=== PATIENT | female | born 1975 | race Caucasian/White ===

== ENCOUNTER → 2020-02-13 | Day surgery (SDC) | payer BC ==
[2020-02-11 13:26] VITALS: BMI 24.9
--- NOTE | 2020-02-12 19:29 | P.GSHP ---
History of Present Illness H&P Date: 02/13/20 CHIEF COMPLAINT: Colitis HISTORY OF PRESENT ILLNESS: The patient is a 44-year-old female who presents with colitis. Lower endoscopy was offered for further evaluation and management. PAST MEDICAL HISTORY: Please see list. PAST SURGICAL HISTORY: Please see list. MEDICATIONS: Please see list. ALLERGIES: Please see list. SOCIAL HISTORY: No illicit drug use FAMILY HISTORY: No reports of Crohn disease or ulcerative colitis. REVIEW OF ORGAN SYSTEMS: CONSTITUTIONAL: No reports of fevers or chills. PHYSICAL EXAM: VITAL SIGNS: Stable GENERAL: Well-developed pleasant in no acute distress. HEENT: No scleral icterus. Extraocular movements grossly intact. Moist buccal mucosa. NECK: Supple without lymphadenopathy. CHEST: Unlabored respirations. Equal bilateral excursions. CARDIOVASCULAR: Regular rate and rhythm. Distal 2+ pulses. ABDOMEN: Soft, nontender, nondistended. MUSCULOSKELETAL: No clubbing, cyanosis, or edema. ASSESSMENT: 1. Colitis. PLAN: 1. Recommend proceeding with a lower endoscopy Past Medical History Past Medical History: GERD/Reflux, Thyroid Disorder Additional Past Medical History / Comment(s): migraines, RLS, +BLOOD IN STOOL History of Any Multi-Drug Resistant Organisms: MRSA Date of last positivie culture/infection: 2011 MDRO Source:: left breast Past Surgical History: Bariatric Surgery, Cholecystectomy, Hysterectomy Past Anesthesia/Blood Transfusion Reactions: Previous Problems w/ Anesthesia Additional Past Anesthesia/Blood Transfusion Reaction / Comment(s): GET SEVERE MIGRAINE WITH ANESTHESIA Smoking Status: Current every day smoker - Past Family History Mother Family Medical History: Cancer Additional Family Medical History / Comment(s): COLON Sister(s) Family Medical History: Deep Vein Thrombosis (DVT) Medications and Allergies Home Medications Medication Instructions Recorded Confirmed Type Pantoprazole Sodium [Protonix] 40 mg PO DAILY 08/01/17 02/11/20 History Promethazine [Phenergan] 25 mg PO Q6HR PRN 08/01/17 02/11/20 History Topiramate [Topamax] 100 mg PO BID 08/01/17 02/11/20 History levETIRAcetam [Keppra] 1,000 mg PO Q12HR 08/01/17 02/11/20 History Benzonatate [Tessalon Perles] 100 mg PO TID PRN 02/11/20 02/11/20 History Desvenlafaxine Succinate [Pristiq 50 mg PO DAILY 02/11/20 02/11/20 History ER] Desvenlafaxine [Pristiq ER] 100 mg PO DAILY 02/11/20 02/11/20 History Ezetimibe [Zetia] 10 mg PO HS 02/11/20 02/11/20 History Gabapentin [Neurontin] 400 mg PO HS 02/11/20 02/11/20 History Galcanezumab-Gnlm [Emgality 120 mg SQ Q30D 02/11/20 02/11/20 History Syringe] HYDROcodone/APAP 10-325MG [[place] 1 tab PO Q6HR PRN 02/11/20 02/11/20 History 10-325] Levothyroxine Sodium [Synthroid] 50 mcg PO DAILY 02/11/20 02/11/20 History Linaclotide [Linzess] 145 mcg PO DAILY 02/11/20 02/11/20 History Metaxalone [Skelaxin] 800 mg PO TID 02/11/20 02/11/20 History Naloxone HCl [Narcan] 4 mg NASAL DIRECTED PRN 02/11/20 02/11/20 History Ospemifene [Osphena] 60 mg PO DAILY 02/11/20 02/11/20 History PHENobarbital 60 mg PO HS 02/11/20 02/11/20 History Reyvow 100 mg PO DAILY PRN 02/11/20 History lamoTRIgine [LaMICtal] 200 mg PO DAILY 02/11/20 02/11/20 History rOPINIRole HCL [Requip Xl] 2 mg PO HS 02/11/20 02/11/20 History traMADol HCL [Ultram ER] 300 mg PO DAILY 02/11/20 02/11/20 History traZODone HCL 100 mg PO HS 02/11/20 02/11/20 History Allergies Allergy/AdvReac Type Severity Reaction Status Date / Time ketorolac [From Toradol] Allergy Nausea & Verified 02/11/20 12:45 Vomiting tramadol [From Ultram] Allergy Rash/Hives Verified 02/11/20 12:45 NSAIDS (Non-Steroidal AdvReac Nausea & Verified 02/11/20 12:45 Anti-Inflamma Vomiting
[~2020-02-13] MED LIST: IV FLUID CONTINUATION 1,000 ML IV ONE; LACTATED RINGERS 1,000 ML IV ONE; LACTATED RINGERS 1,000 ML IV SCH; LIDOCAINE 1% (10MG/ML) FOR IV START INTRADERMA ONE; LIDOCAINE 1% INJ 10MG/ML (20 ML MDV) ONE; MIDAZOLAM 2 MG/2 ML VIAL IV ONE; PROPOFOL 10 MG/ML 20 ML VIAL IV ONE
[2020-02-13 07:51] VITALS: TEMP 97.8
--- NOTE | 2020-02-13 10:13 | P.HPADDEND ---
H&P Addendum H&P Addendum Date: 02/13/20 Patient reports history of rectal bleeding and abdominal pain. We'll proceed with colonoscopy.
--- NOTE | 2020-02-13 10:16 | P.PCN ---
Date of Procedure: 02/13/20 Description of Procedure: PREOPERATIVE DIAGNOSIS: Rectal bleeding with abdominal pain POSTOPERATIVE DIAGNOSIS: Scattered diverticulosis, few Internal and external hemorrhoids, grade 3 Tubular adenoma sigmoid colon OPERATION: Colonoscopy to the ileocecal valve and appendiceal orifice. Colonoscopy with hot snare polypectomy SURGEON: Liyah Shabazz MD. ANESTHESIA: MAC. INDICATIONS: The patient is an 44-year-old female who presents rectal bleeding and abdominal pain. Benefits and risks were described and informed consent was obtained. DESCRIPTION OF PROCEDURE: The patient had undergone Suprep. He had been brought into the operating room and laid in the left lateral decubitus position. After adequate intravenous sedation, the rectum was examined with 2% lidocaine jelly. External hemorrhoids were encountered. The rectal tone was within normal limits. No lesions were palpated in the rectal vault. An Olympus colonoscope was advanced until the ileocecal valve and appendiceal orifice were clearly viewed. The prep was fair. Scattered diverticulosis was encountered. Sigmoid colon polyp was snare polypectomy. No evidence of focal colitis was found. Retroflexion of the scope demonstrated grade 3 internal hemorrhoids without active bleeding or inflammation. The colon was desufflated. The patient had tolerated the procedure well. Withdrawal time was over 6 minutes. FINDINGS: Aronchick preparation quality scale 3 (1-5) Internal hemorrhoids, grade 3 External hemorrhoids, grade 3 No arteriovenous malformations. Scattered diverticulosis Removal of 1 polyp: - Snare polypectomy 20 cm from the anal verge, 8 mm tubulovillous adenoma polyp, sigmoid colon No focal colitis. RECOMMENDATIONS: Repeat lower endoscopy 5 years, 2024 Plan - Discharge Summary Discharge Rx Participant: No New Discharge Prescriptions: Continue Topiramate [Topamax] 100 mg PO BID Promethazine [Phenergan] 25 mg PO Q6HR PRN PRN Reason: Nausea Pantoprazole Sodium [Protonix] 40 mg PO DAILY levETIRAcetam [Keppra] 1,000 mg PO Q12HR lamoTRIgine [LaMICtal] 200 mg PO DAILY traMADol HCL [Ultram ER] 300 mg PO DAILY Metaxalone [Skelaxin] 800 mg PO TID HYDROcodone/APAP 10-325MG [[place] 10-325] 1 tab PO Q6HR PRN PRN Reason: Pain Benzonatate [Tessalon Perles] 100 mg PO TID PRN PRN Reason: Cough Desvenlafaxine [Pristiq ER] 100 mg PO DAILY Desvenlafaxine Succinate [Pristiq ER] 50 mg PO DAILY Ezetimibe [Zetia] 10 mg PO HS Levothyroxine Sodium [Synthroid] 50 mcg PO DAILY traZODone HCL 100 mg PO HS rOPINIRole HCL [Requip Xl] 2 mg PO HS Reyvow 100 mg PO DAILY PRN PRN Reason: Migraine Headache PHENobarbital 60 mg PO HS Ospemifene [Osphena] 60 mg PO DAILY Naloxone HCl [Narcan] 4 mg NASAL DIRECTED PRN PRN Reason: OVERDOSE Linaclotide [Linzess] 145 mcg PO DAILY Galcanezumab-Gnlm [Emgality Syringe] 120 mg SQ Q30D Gabapentin [Neurontin] 400 mg PO HS Discharge Medication List Pantoprazole Sodium [Protonix] 40 mg PO DAILY 08/01/17 [History] Promethazine [Phenergan] 25 mg PO Q6HR PRN 08/01/17 [History] Topiramate [Topamax] 100 mg PO BID 08/01/17 [History] levETIRAcetam [Keppra] 1,000 mg PO Q12HR 08/01/17 [History] Benzonatate [Tessalon Perles] 100 mg PO TID PRN 02/11/20 [History] Desvenlafaxine Succinate [Pristiq ER] 50 mg PO DAILY 02/11/20 [History] Desvenlafaxine [Pristiq ER] 100 mg PO DAILY 02/11/20 [History] Ezetimibe [Zetia] 10 mg PO HS 02/11/20 [History] Gabapentin [Neurontin] 400 mg PO HS 02/11/20 [History] Galcanezumab-Gnlm [Emgality Syringe] 120 mg SQ Q30D 02/11/20 [History] HYDROcodone/APAP 10-325MG [[place] 10-325] 1 tab PO Q6HR PRN 02/11/20 [History] Levothyroxine Sodium [Synthroid] 50 mcg PO DAILY 02/11/20 [History] Linaclotide [Linzess] 145 mcg PO DAILY 02/11/20 [History] Metaxalone [Skelaxin] 800 mg PO TID 02/11/20 [History] Naloxone HCl [Narcan] 4 mg NASAL DIRECTED PRN 02/11/20 [History] Ospemifene [Osphena] 60 mg PO DAILY 02/11/20 [History] PHENobarbital 60 mg PO HS 02/11/20 [History] Reyvow 100 mg PO DAILY PRN 02/11/20 [History] lamoTRIgine [LaMICtal] 200 mg PO DAILY 02/11/20 [History] rOPINIRole HCL [Requip Xl] 2 mg PO HS 02/11/20 [History] traMADol HCL [Ultram ER] 300 mg PO DAILY 02/11/20 [History] traZODone HCL 100 mg PO HS 02/11/20 [History] Follow up Appointment(s)/Referral(s): Liyah Shabazz MD [STAFF PHYSICIAN] - 03/03/20 Patient Instructions/Handouts: Hemorrhoids (DC), Colorectal Polyps (GEN), Colonoscopy (DC) Activity/Diet/Wound Care/Special Instructions: Repeat colonoscopy, 5 years 01/23/2025 Discharge Disposition: HOME SELF-CARE
[2020-02-13 10:17] VITALS: RESP 16
[2020-02-13 10:45] VITALS: BP 132/82; PULSE 77
== END | disposition home or self-care (01) ==
LOC: ORWHC2ENDO 07:20
PROVIDERS: ATTEND Surgery Plastic and Reconstructive Surgery
DX: K63.5 Polyp of colon (principal); K57.30 Diverticulosis of large intestine without perforation or abscess without bleeding; K64.4 Residual hemorrhoidal skin tags; K64.2 Third degree hemorrhoids; K21.9 Gastro-esophageal reflux disease without esophagitis; E07.9 Disorder of thyroid, unspecified; G43.909 Migraine, unspecified, not intractable, without status migrainosus; G25.81 Restless legs syndrome; F17.200 Nicotine dependence, unspecified, uncomplicated; Z86.14 Personal history of Methicillin resistant Staphylococcus aureus infection; Z79.890 Hormone replacement therapy; Z79.899 Other long term (current) drug therapy; Z90.49 Acquired absence of other specified parts of digestive tract; Z98.84 Bariatric surgery status; Z90.710 Acquired absence of both cervix and uterus; Z88.6 Allergy status to analgesic agent; Z80.0 Family history of malignant neoplasm of digestive organs; Z82.49 Family history of ischemic heart disease and other diseases of the circulatory system
CPT/HCPCS: 88305; 87635; 45385; J2250; J2001; J2704

== ENCOUNTER → 2020-03-03 | Outpatient (CLI) | payer BC ==
[2020-03-03 15:24] LABS: HCT 38.6 % (34.0-46.0); HGB 12.5 gm/dL (11.4-16.0); MCH 33.3 pg (25.0-35.0); MCHC 32.3 g/dL (31.0-37.0); MCV 102.9 fL (80.0-100.0); Macrocytosis Slight; Mean Platelet Volume 7.2; Platelet Count 378 k/uL (150-450); RBC 3.75 m/uL (3.80-5.40); RDW 13.2 % (11.5-15.5); WBC 6.3 k/uL (3.8-10.6)
[2020-03-03 15:34] LABS: INR 0.9 (<1.2); Partial Thromboplastin Time 24.7 sec (22.0-30.0); Prothrombin Time 9.7 sec (9.0-12.0)
[2020-03-03 23:44] LABS: Folate, Serum 3.1 ng/mL
[2020-03-04 00:03] LABS: Ferritin 7.1 ng/mL (10.0-291.0)
[2020-03-04 00:04] LABS: % Iron Saturation 20.57 (12.00-45.00); African American GFR (CKD) 123.9 (60.0-200.0); Albumin 4.1 g/dL (3.80-4.90); Albumin/Globulin Ratio 1.86 (1.60-3.17); Anion Gap 5.7 mmol/L (4.00-12.00); BUN/Creat Ratio 11.43 Ratio (12.00-20.00); Calcium 8.9 mg/dL (8.7-10.3); Carbon Dioxide 25.3 mmol/L (21.6-31.8); Chol/HDL Ratio 3.46; Globulin 2.2 g/dL (1.6-3.3); LDL Cholesterol,Calculated 111.8 mg/dL (0.0-131.0); Non-African American GFR(CKD) 106.9 (60.0-200.0); Phosphorus 3.8 mg/dL (2.4-5.1); Potassium 3.3 mmol/L (3.5-5.5); Total Bilirubin 0.2 mg/dL (0.3-1.2); Total Protein 6.3 g/dL (6.2-8.2); VLDL Calculation 26.2 mg/dL (5.00-40.00)
[2020-03-04 03:49] LABS: Hemoglobin A1C 5.5 % (4.0-6.0)
[2020-03-04 14:06] LABS: Zinc, Serum 72 ug/dL (60-130)
[2020-03-05 06:38] LABS: Vitamin A 43 ug/dL (38-106)
[2020-03-05 13:09] LABS: Vit B1(Thiamine) 61 ug/L (38-122)
[2020-03-06 01:37] LABS: Selenium 85 mcg/L (63-160)
== END | disposition home or self-care (01) ==
LOC: LABWHC1 14:46
PROVIDERS: ATTEND Surgery Plastic and Reconstructive Surgery
DX: E21.1 Secondary hyperparathyroidism, not elsewhere classified (principal); E89.1 Postprocedural hypoinsulinemia; D50.8 Other iron deficiency anemias; K90.89 Other intestinal malabsorption; E55.9 Vitamin D deficiency, unspecified; K74.1 Hepatic sclerosis; N19 Unspecified kidney failure; K50.90 Crohn's disease, unspecified, without complications
CPT/HCPCS: 36415; 80053; 80061; 82306; 82525; 82607; 82728; 82746; 83036; 83540; 83550; 83735; 83970; 84100; 84134; 84255; 84425; 84443; 84590; 84630; 85027; 85610; 85730

== ENCOUNTER 2020-09-16 09:18 | Day surgery (SDC) | payer BC ==
[2020-09-15 13:39] VITALS: BMI 23.6
[~2020-09-16 09:18] MED LIST changes: -IV FLUID CONTINUATION 1,000 ML IV ONE; -LACTATED RINGERS 1,000 ML IV ONE; -LIDOCAINE 1% (10MG/ML) FOR IV START INTRADERMA ONE; -LIDOCAINE 1% INJ 10MG/ML (20 ML MDV) ONE; -MIDAZOLAM 2 MG/2 ML VIAL IV ONE; -PROPOFOL 10 MG/ML 20 ML VIAL IV ONE
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
[2020-09-16] MEDS ORDERED: LIDOCAINE 1% (10MG/ML) FOR IV START INTRADERMA ONE (10:40)
[2020-09-16 10:45] VITALS: TEMP 98.4
[2020-09-16] MEDS ORDERED: fentaNYL (PF) 50 MCG/ML 2 ML AMP IVP ONE (10:56)
[2020-09-16] MEDS ORDERED: MIDAZOLAM 2 MG/2 ML VIAL IVP ONE (10:56)
[2020-09-16] MEDS ORDERED: PROPOFOL 10 MG/ML 20 ML VIAL IV ONE (11:25)
[2020-09-16] MEDS ORDERED: LIDOCAINE 1% INJ 10MG/ML (20 ML MDV) ONE (11:25)
[2020-09-16 11:53] VITALS: RESP 16
[2020-09-16 11:59] VITALS: BP 106/63; PULSE 82
--- NOTE | 2020-09-21 21:34 | P.PCN ---
Date of Procedure: 09/16/20 Description of Procedure: PREOPERATIVE DIAGNOSIS: Dysphagia. Nausea with vomiting. POSTOPERATIVE DIAGNOSIS: Dysphagia. Nausea with vomiting. Gastrojejunal stricture without chronic ulcer without perforation OPERATION: Esophagogastrojejunoscopy with balloon dilatation from 12 to 20 mm. SURGEON: Liyah Shabazz MD ANESTHESIA: MAC. INDICATIONS: The patient is a 44-year-old female who presents with a history of dysphagia including new-onset nausea and vomiting. Benefits and risks of the procedure w ere described. Informed consent was obtained. DESCRIPTION: The patient was brought into the endoscopy suite and laid in the left lateral decubitus position. After a timeout was confirmed, the procedure was initiated. An Olympus gastroscope was passed along the posterior oropharynx down to the distal esophagus where the squamocolumnar junction was unremarkable. The gastric pouch was entered. A gastrojejunal stricture of 12 mm was found as the adult gastroscope was 9.5 mm in size. A TEXbase balloon dilator was placed through the scope. Final insufflation up to 20 mm was performed with a total of 2 minutes. The scope was advanced up to 60 cm from the incisors into the Yuri limb. The mucosa of the gastrojejunal anastomosis was intact. No chronic gastrojejunal marginal ulcer was encountered. No full-thickness injury was encountered. The GI tract was desufflated. The patient tolerated the procedure well. FINDINGS: Stricture of approximately 12 mm encountered. No chronic gastrojejunal ulceration encountered. Successful balloon dilatation to 20 mm. RECOMMENDATIONS: Upper endoscopy as needed. Avoid NSAIDs for risk of recurrence of stricture Plan - Discharge Summary New Discharge Prescriptions: Continue HYDROcodone/APAP 10-325MG [[place] 10-325] 1 tab PO QID ALPRAZolam [Xanax] 1 mg PO TID levETIRAcetam [Keppra] 1,000 mg PO BID Pantoprazole Sodium [Protonix] 40 mg PO BID Levothyroxine Sodium [Synthroid] 75 mg PO DAILY Desvenlafaxine Succinate [Pristiq] 100 mg PO DAILY lamoTRIgine [LaMICtal] 200 mg PO DAILY Ezetimibe [Zetia] 10 mg PO HS rOPINIRole HCL [Requip Xl] 2 mg PO HS traZODone HCL 100 mg PO HS Hyoscyamine Sulfate [Levsin] 0.125 mg PO DIRECTED Phenazopyridine [Pyridium] 200 mg PO TID Promethazine [Phenergan] 25 mg PO ONCE PRN PRN Reason: UPSET STOMACH Ciprofloxacin HCl [Cipro] 500 mg PO DIRECTED Baclofen 10 mg PO DAILY Topamax (Unknown Dose) 1 tab PO DAILY Potassium (Unknown Dose) 1 tab PO DAILY No Action Topiramate [Topamax] 100 mg PO BID Promethazine [Phenergan] 25 mg PO Q6HR PRN PRN Reason: Nausea Pantoprazole Sodium [Protonix] 40 mg PO DAILY levETIRAcetam [Keppra] 1,000 mg PO Q12HR lamoTRIgine [LaMICtal] 200 mg PO DAILY traMADol HCL [Ultram ER] 300 mg PO DAILY Metaxalone [Skelaxin] 800 mg PO TID HYDROcodone/APAP 10-325MG [[place] 10-325] 1 tab PO Q6HR PRN PRN Reason: Pain Benzonatate [Tessalon Perles] 100 mg PO TID PRN PRN Reason: Cough Desvenlafaxine [Pristiq ER] 100 mg PO DAILY Desvenlafaxine Succinate [Pristiq ER] 50 mg PO DAILY Ezetimibe [Zetia] 10 mg PO HS Levothyroxine Sodium [Synthroid] 50 mcg PO DAILY traZODone HCL 100 mg PO HS rOPINIRole HCL [Requip Xl] 2 mg PO HS [place] 100 mg PO DAILY PRN PRN Reason: Migraine Headache PHENobarbitaL [PHENobarbital] 60 mg PO HS Ospemifene [Osphena] 60 mg PO DAILY Naloxone HCl [Narcan] 4 mg NASAL DIRECTED PRN PRN Reason: OVERDOSE Linaclotide [Linzess] 145 mcg PO DAILY Galcanezumab-Gnlm [Emgality Syringe] 120 mg SQ Q30D Gabapentin [Neurontin] 400 mg PO HS Discharge Medication List Pantoprazole Sodium [Protonix] 40 mg PO DAILY 08/01/17 [History] Promethazine [Phenergan] 25 mg PO Q6HR PRN 08/01/17 [History] Topiramate [Topamax] 100 mg PO BID 08/01/17 [History] levETIRAcetam [Keppra] 1,000 mg PO Q12HR 08/01/17 [History] Benzonatate [Tessalon Perles] 100 mg PO TID PRN 02/11/20 [History] Desvenlafaxine Succinate [Pristiq ER] 50 mg PO DAILY 02/11/20 [History] Desvenlafaxine [Pristiq ER] 100 mg PO DAILY 02/11/20 [History] Ezetimibe [Zetia] 10 mg PO HS 02/11/20 [History] Gabapentin [Neurontin] 400 mg PO HS 02/11/20 [History] Galcanezumab-Gnlm [Emgality Syringe] 120 mg SQ Q30D 02/11/20 [History] HYDROcodone/APAP 10-325MG [[place] 10-325] 1 tab PO Q6HR PRN 02/11/20 [History] Levothyroxine Sodium [Synthroid] 50 mcg PO DAILY 02/11/20 [History] Linaclotide [Linzess] 145 mcg PO DAILY 02/11/20 [History] Metaxalone [Skelaxin] 800 mg PO TID 02/11/20 [History] Naloxone HCl [Narcan] 4 mg NASAL DIRECTED PRN 02/11/20 [History] Ospemifene [Osphena] 60 mg PO DAILY 02/11/20 [History] PHENobarbitaL [PHENobarbital] 60 mg PO HS 02/11/20 [History] Reyvow 100 mg PO DAILY PRN 02/11/20 [History] lamoTRIgine [LaMICtal] 200 mg PO DAILY 02/11/20 [History] rOPINIRole HCL [Requip Xl] 2 mg PO HS 02/11/20 [History] traMADol HCL [Ultram ER] 300 mg PO DAILY 02/11/20 [History] traZODone HCL 100 mg PO HS 02/11/20 [History] ALPRAZolam [Xanax] 1 mg PO TID 06/04/20 [History] Desvenlafaxine Succinate [Pristiq] 100 mg PO DAILY 06/04/20 [History] Ezetimibe [Zetia] 10 mg PO HS 06/04/20 [History] HYDROcodone/APAP 10-325MG [[place] 10-325] 1 tab PO QID 06/04/20 [History] Hyoscyamine Sulfate [Levsin] 0.125 mg PO DIRECTED 06/04/20 [History] Levothyroxine Sodium [Synthroid] 75 mg PO DAILY 06/04/20 [History] Pantoprazole Sodium [Protonix] 40 mg PO BID 06/04/20 [History] lamoTRIgine [LaMICtal] 200 mg PO DAILY 06/04/20 [History] levETIRAcetam [Keppra] 1,000 mg PO BID 06/04/20 [History] rOPINIRole HCL [Requip Xl] 2 mg PO HS 06/04/20 [History] traZODone HCL 100 mg PO HS 06/04/20 [History] Baclofen 10 mg PO DAILY 09/15/20 [History] Ciprofloxacin HCl [Cipro] 500 mg PO DIRECTED 09/15/20 [History] Phenazopyridine [Pyridium] 200 mg PO TID 09/15/20 [History] Potassium (Unknown Dose) 1 tab PO DAILY 09/15/20 [History] Promethazine [Phenergan] 25 mg PO ONCE PRN 09/15/20 [History] Topamax (Unknown Dose) 1 tab PO DAILY 09/15/20 [History] Follow up Appointment(s)/Referral(s): Liyah Shabazz MD [STAFF PHYSICIAN] - 09/30/20 Patient Instructions/Handouts: *[facility] - (Anesthesia) Endoscopy Discharge Instructions, Esophageal Dilation (DC) Activity/Diet/Wound Care/Special Instructions: Liquid diet today. Soft diet tomorrow. Discharge Disposition: HOME SELF-CARE
== END 2020-09-16 12:27 | disposition home or self-care (01) ==
LOC: ORWHC2ENDO 09:18 → MERGE 09:18 → ORWHC2ENDO 12:27
PROVIDERS: ATTEND Surgery Plastic and Reconstructive Surgery
DX: K21.9 Gastro-esophageal reflux disease without esophagitis (principal); K95.89 Other complications of other bariatric procedure; I10 Essential (primary) hypertension; M19.90 Unspecified osteoarthritis, unspecified site; G40.909 Epilepsy, unspecified, not intractable, without status epilepticus; E07.9 Disorder of thyroid, unspecified; G43.909 Migraine, unspecified, not intractable, without status migrainosus; F41.9 Anxiety disorder, unspecified; F31.9 Bipolar disorder, unspecified; F17.210 Nicotine dependence, cigarettes, uncomplicated; Z87.442 Personal history of urinary calculi; Z80.0 Family history of malignant neoplasm of digestive organs; E78.5 Hyperlipidemia, unspecified; Z98.84 Bariatric surgery status; Z98.890 Other specified postprocedural states; Z90.710 Acquired absence of both cervix and uterus; Z90.49 Acquired absence of other specified parts of digestive tract; Z79.890 Hormone replacement therapy; Z79.891 Long term (current) use of opiate analgesic; Z79.899 Other long term (current) drug therapy; Z88.6 Allergy status to analgesic agent; Z88.5 Allergy status to narcotic agent
CPT/HCPCS: 43245; J2250; J2001; J3010; J2704; C1726

== ENCOUNTER 2020-10-28 08:06 | Day surgery (SDC) | payer BC ==
[2020-10-26 14:29] VITALS: BMI 24.1
--- NOTE | 2020-10-28 05:43 | P.GSHP ---
History of Present Illness H&P Date: 10/28/20 CHIEF COMPLAINT: Dysphagia HISTORY OF PRESENT ILLNESS: The patient is a 45-year-old female who presents with new upper esophageal dysphagia. She has pre-existing history of gastroesophageal reflux disease. She reports food gets stuck in her throat ongoing for 1-2 months. Upper endoscopy was offered for further evaluation and management. PAST MEDICAL HISTORY: Please see list. PAST SURGICAL HISTORY: Please see list. MEDICATIONS: Please see list. ALLERGIES: Please see list. SOCIAL HISTORY: No illicit drug use FAMILY HISTORY: No reports of Crohn disease or ulcerative colitis. REVIEW OF ORGAN SYSTEMS: CONSTITUTIONAL: No reports of fevers or chills. GI: Denies any blood in stools or constipation. PHYSICAL EXAM: VITAL SIGNS: Stable GENERAL: Well-developed and pleasant in no acute distress. HEENT: No scleral icterus. Extraocular movements grossly intact. Moist buccal mucosa. NECK: Supple without lymphadenopathy. CHEST: Unlabored respirations. Equal bilateral excursions. CARDIOVASCULAR: Regular rate and rhythm. Distal 2+ pulses. ABDOMEN: Soft, nondistended. MUSCULOSKELETAL: No clubbing, cyanosis, or edema. ASSESSMENT: 1. Dysphagia 2. Gastroesophageal reflux disease. PLAN: 1. Recommend proceeding with an upper endoscopy with rigid dilation Past Medical History Past Medical History: GERD/Reflux, Hypertension, Osteoarthritis (OA), Seizure Disorder, Thyroid Disorder Additional Past Medical History / Comment(s): LAST SEIZURE 08/14, DDD, MIGRAINES, KIDNEY STONES, STATES FOOD IS GETTING STUCK, abdominal discomfort History of Any Multi-Drug Resistant Organisms: MRSA Date of last positivie culture/infection: 2011 MDRO Source:: left breast Past Surgical History: Bariatric Surgery, Cholecystectomy, Hysterectomy Additional Past Surgical History / Comment(s): Gastric bypass in [place] 2012 ,panniculectomy breast reduction 2014. CYSTOSCOPY WITH KIDNEY STONE REMOVAL 09/04/2020 ([place]) Past Anesthesia/Blood Transfusion Reactions: Previous Problems w/ Anesthesia, Motion Sickness Additional Past Anesthesia/Blood Transfusion Reaction / Comment(s): MIGRAINE AFTER ANESTHESIA Smoking Status: Current every day smoker - Past Family History Mother Family Medical History: Cancer Sister(s) Family Medical History: Deep Vein Thrombosis (DVT) Medications and Allergies Home Medications Medication Instructions Recorded Confirmed Type Topiramate [Topamax] 100 mg PO BID 08/01/17 10/26/20 History Linaclotide [Linzess] 145 mcg PO DAILY 02/11/20 10/26/20 History Naloxone HCl [Narcan] 4 mg NASAL DIRECTED PRN 02/11/20 10/26/20 History Ospemifene [Osphena] 60 mg PO DAILY 02/11/20 10/26/20 History PHENobarbitaL [PHENobarbital] 60 mg PO HS 02/11/20 10/26/20 History Reyvow 100 mg PO DAILY PRN 02/11/20 10/26/20 History ALPRAZolam [Xanax] 1 mg PO TID 06/04/20 10/26/20 History Ezetimibe [Zetia] 10 mg PO HS 06/04/20 10/26/20 History HYDROcodone/APAP 10-325MG [[place] 1 tab PO QID 06/04/20 10/26/20 History 10-325] Hyoscyamine Sulfate [Levsin] 0.125 mg PO DIRECTED 06/04/20 10/26/20 History Levothyroxine Sodium [Synthroid] 75 mg PO DAILY 06/04/20 10/26/20 History Pantoprazole Sodium [Protonix] 40 mg PO BID 06/04/20 10/26/20 History lamoTRIgine [LaMICtal] 200 mg PO DAILY 06/04/20 10/26/20 History levETIRAcetam [Keppra] 1,000 mg PO BID 06/04/20 10/26/20 History rOPINIRole HCL [Requip Xl] 2 mg PO HS 06/04/20 10/26/20 History traZODone HCL 100 mg PO HS 06/04/20 10/26/20 History Baclofen 10 mg PO DAILY 09/15/20 10/26/20 History Promethazine [Phenergan] 25 mg PO ONCE PRN 09/15/20 10/26/20 History Ascorbic Acid [Vitamin C] 500 mg PO DAILY 10/26/20 10/26/20 History Cholecalciferol [Vitamin D3 (25 50 mcg PO DAILY 10/26/20 10/26/20 History Mcg = 1000 Iu)] Desvenlafaxine [Pristiq ER] 100 mg PO DAILY 10/26/20 10/26/20 History Magnesium 500 mg PO DAILY 10/26/20 10/26/20 History Potassium Chloride [Klor-Con 20 20 meq PO DAILY 10/26/20 10/26/20 History Packets] Tamsulosin [Flomax] 0.4 mg PO HS 10/26/20 10/26/20 History Zinc 50 mg PO DAILY 10/26/20 10/26/20 History Allergies Allergy/AdvReac Type Severity Reaction Status Date / Time ketorolac [From Toradol] Allergy Nausea & Verified 10/26/20 14:09 Vomiting tramadol [From Ultram] Allergy Rash/Hives Verified 10/26/20 14:09 NSAIDS (Non-Steroidal AdvReac Nausea & Verified 10/26/20 14:09 Anti-Inflamma Vomiting
[~2020-10-28 08:06] MED LIST changes: -LACTATED RINGERS 1,000 ML IV SCH; +LIDOCAINE 1% (10MG/ML) FOR IV START INTRADERMA PRN
[2020-10-28 08:46] VITALS: TEMP 97.9
[2020-10-28] MEDS: LACTATED RINGERS 1,000 ML IV SCH ×2 (09:02→09:16)
[2020-10-28] MEDS ORDERED: LIDOCAINE 1% (10MG/ML) FOR IV START INTRADERMA ONE (09:02)
[2020-10-28] MEDS ORDERED: MIDAZOLAM 2 MG/2 ML VIAL IVP ONE ×2 (09:08→09:11)
[2020-10-28] MEDS ORDERED: MIDAZOLAM 2 MG/2 ML VIAL ONE (09:17)
[2020-10-28] MEDS ORDERED: fentaNYL (PF) 50 MCG/ML 2 ML AMP ONE (09:17)
[2020-10-28] MEDS ORDERED: PROPOFOL 10 MG/ML 20 ML VIAL IV ONE (09:17)
[2020-10-28] MEDS ORDERED: LIDOCAINE 1% INJ 10MG/ML (20 ML MDV) ONE (09:17)
[2020-10-28 09:39] VITALS: RESP 16
--- NOTE | 2020-10-28 09:47 | P.PCN ---
Date of Procedure: 10/28/20 Description of Procedure: PREOPERATIVE DIAGNOSIS: Dysphagia. Gastroesophageal reflux disease Esophageal dysmotility, upper esophagus POSTOPERATIVE DIAGNOSIS: Dysphagia. Gastroesophageal reflux disease Esophageal dysmotility, upper esophagus Esophageal stricture Diaphragmatic hiatal hernia OPERATION: Esophagogastroduodenoscopy with rigid dilator over the guidewire 51 Fr with dilation of esophagus. SURGEON: Liyah Shabazz MD ANESTHESIA: MAC. INDICATIONS: The patient is a 45-year-old male who presents with a history of dysphagia. Benefits and risks of the procedure were described. Informed consent was obtained. DESCRIPTION: The patient was brought into the endoscopy suite and laid in the left lateral decubitus position. After a timeout was confirmed, the procedure was initiated. An Olympus gastroscope was passed into the posterior oropharynx down to the distal esophagus hiatal hernia was identified. The scope was entered into the gastric pouch without gastrojejunal ulceration. Stenosis along the upper esophageal sphincter was identified. To address her upper esophageal stricture, rigid dilator over guidewire was selected. Next using an Welsh rigid dilator, a guidewire was placed through the gastroscope. Next the scope was withdrawn. A 51-Bhut[place] rigid Welsh dilator was passed carefully along the posterior oropharynx to 50 cm and left in place for 2-3 minutes stretch. The dilator was withdrawn including the guidewire. The scope was reentered along the posterior oropharynx with no findings of full- thickness tear of the upper esophageal sphincter. No full-thickness injury was encountered. The GI tract was desufflated. The patient tolerated the procedure well. FINDINGS: No gastrojejunal anastomotic ulcer Upper esophageal stricture without ulceration dilated Welsh rigid dilator 51-Bhutanese completed. Hiatal hernia, 2-cm RECOMMENDATIONS: Upper endoscopy as needed Plan - Discharge Summary Discharge Rx Participant: No New Discharge Prescriptions: Continue Topiramate [Topamax] 100 mg PO BID [place] 100 mg PO DAILY PRN PRN Reason: Migraine Headache PHENobarbitaL [PHENobarbital] 60 mg PO HS Ospemifene [Osphena] 60 mg PO DAILY Naloxone HCl [Narcan] 4 mg NASAL DIRECTED PRN PRN Reason: OVERDOSE Linaclotide [Linzess] 145 mcg PO DAILY HYDROcodone/APAP 10-325MG [[place] 10-325] 1 tab PO QID ALPRAZolam [Xanax] 1 mg PO TID levETIRAcetam [Keppra] 1,000 mg PO BID Pantoprazole Sodium [Protonix] 40 mg PO BID Levothyroxine Sodium [Synthroid] 75 mg PO DAILY lamoTRIgine [LaMICtal] 200 mg PO DAILY Ezetimibe [Zetia] 10 mg PO HS rOPINIRole HCL [Requip Xl] 2 mg PO HS traZODone HCL 100 mg PO HS Hyoscyamine Sulfate [Levsin] 0.125 mg PO DIRECTED Promethazine [Phenergan] 25 mg PO ONCE PRN PRN Reason: UPSET STOMACH Baclofen 10 mg PO DAILY Tamsulosin [Flomax] 0.4 mg PO HS Magnesium 500 mg PO DAILY Zinc 50 mg PO DAILY Cholecalciferol [Vitamin D3 (25 Mcg = 1000 Iu)] 50 mcg PO DAILY Ascorbic Acid [Vitamin C] 500 mg PO DAILY Desvenlafaxine [Pristiq ER] 100 mg PO DAILY Potassium Chloride [Klor-Con 20 Packets] 20 meq PO DAILY Discharge Medication List Topiramate [Topamax] 100 mg PO BID 08/01/17 [History] Linaclotide [Linzess] 145 mcg PO DAILY 02/11/20 [History] Naloxone HCl [Narcan] 4 mg NASAL DIRECTED PRN 02/11/20 [History] Ospemifene [Osphena] 60 mg PO DAILY 02/11/20 [History] PHENobarbitaL [PHENobarbital] 60 mg PO HS 02/11/20 [History] [place] 100 mg PO DAILY PRN 02/11/20 [History] ALPRAZolam [Xanax] 1 mg PO TID 06/04/20 [History] Ezetimibe [Zetia] 10 mg PO HS 06/04/20 [History] HYDROcodone/APAP 10-325MG [[place] 10-325] 1 tab PO QID 06/04/20 [History] Hyoscyamine Sulfate [Levsin] 0.125 mg PO DIRECTED 06/04/20 [History] Levothyroxine Sodium [Synthroid] 75 mg PO DAILY 06/04/20 [History] Pantoprazole Sodium [Protonix] 40 mg PO BID 06/04/20 [History] lamoTRIgine [LaMICtal] 200 mg PO DAILY 06/04/20 [History] levETIRAcetam [Keppra] 1,000 mg PO BID 06/04/20 [History] rOPINIRole HCL [Requip Xl] 2 mg PO HS 06/04/20 [History] traZODone HCL 100 mg PO HS 06/04/20 [History] Baclofen 10 mg PO DAILY 09/15/20 [History] Promethazine [Phenergan] 25 mg PO ONCE PRN 09/15/20 [History] Ascorbic Acid [Vitamin C] 500 mg PO DAILY 10/26/20 [History] Cholecalciferol [Vitamin D3 (25 Mcg = 1000 Iu)] 50 mcg PO DAILY 10/26/20 [History] Desvenlafaxine [Pristiq ER] 100 mg PO DAILY 10/26/20 [History] Magnesium 500 mg PO DAILY 10/26/20 [History] Potassium Chloride [Klor-Con 20 Packets] 20 meq PO DAILY 10/26/20 [History] Tamsulosin [Flomax] 0.4 mg PO HS 10/26/20 [History] Zinc 50 mg PO DAILY 10/26/20 [History] Follow up Appointment(s)/Referral(s): Liyah Shabazz MD [STAFF PHYSICIAN] - 11/10/20 Patient Instructions/Handouts: *[facility] - (Anesthesia) Endoscopy Discharge Instructions, Esophageal Stricture (DC), Esophageal Dilation (DC) Activity/Diet/Wound Care/Special Instructions: Diet as tolerated Discharge Disposition: HOME SELF-CARE
[2020-10-28 10:02] VITALS: BP 109/71; PULSE 58
[2020-10-28] MEDS ORDERED: HYDROcodone/APAP 10-325MG 1 EACH TAB ONE (10:11)
[2020-10-28] MEDS ORDERED: HYDROcodone/APAP 10-325MG 1 EACH TAB PO ONE (10:12)
== END 2020-10-28 10:42 | disposition home or self-care (01) ==
LOC: ORWHC2ENDO 08:06
PROVIDERS: ATTEND Surgery Plastic and Reconstructive Surgery
DX: K22.2 Esophageal obstruction (principal); K22.4 Dyskinesia of esophagus; K44.9 Diaphragmatic hernia without obstruction or gangrene; K21.9 Gastro-esophageal reflux disease without esophagitis; I10 Essential (primary) hypertension; F17.210 Nicotine dependence, cigarettes, uncomplicated; M19.90 Unspecified osteoarthritis, unspecified site; E07.9 Disorder of thyroid, unspecified; G43.909 Migraine, unspecified, not intractable, without status migrainosus; G40.909 Epilepsy, unspecified, not intractable, without status epilepticus; Z79.890 Hormone replacement therapy; Z79.891 Long term (current) use of opiate analgesic; Z79.899 Other long term (current) drug therapy; Z88.6 Allergy status to analgesic agent; Z88.5 Allergy status to narcotic agent; Z87.442 Personal history of urinary calculi; Z86.14 Personal history of Methicillin resistant Staphylococcus aureus infection; Z98.84 Bariatric surgery status; Z90.49 Acquired absence of other specified parts of digestive tract; Z90.710 Acquired absence of both cervix and uterus; Z82.49 Family history of ischemic heart disease and other diseases of the circulatory system; Z80.9 Family history of malignant neoplasm, unspecified
CPT/HCPCS: 43248; J2250; J2001; J3010; J2704; 43249

== ENCOUNTER 2020-12-03 08:10 | Day surgery (SDC) | payer BC ==
[2020-11-30 12:19] VITALS: BMI 24.0
--- NOTE | 2020-12-03 04:47 | P.GSHP ---
History of Present Illness H&P Date: 12/03/20 CHIEF COMPLAINT: Esophageal stricture HISTORY OF PRESENT ILLNESS: The patient is a 45-year-old female who presents reports dysphagia. Upper endoscopy was offered for further evaluation and management. PAST MEDICAL HISTORY: Please see list. PAST SURGICAL HISTORY: Please see list. MEDICATIONS: Please see list. ALLERGIES: Please see list. SOCIAL HISTORY: No illicit drug use FAMILY HISTORY: No reports of Crohn disease or ulcerative colitis. REVIEW OF ORGAN SYSTEMS: CONSTITUTIONAL: No reports of fevers or chills. PHYSICAL EXAM: VITAL SIGNS: Stable GENERAL: Well-developed and pleasant in no acute distress. HEENT: No scleral icterus. Extraocular movements grossly intact. Moist buccal mucosa. NECK: Supple without lymphadenopathy. CHEST: Unlabored respirations. Equal bilateral excursions. CARDIOVASCULAR: Regular rate and rhythm. Distal 2+ pulses. ABDOMEN: Soft, nondistended. MUSCULOSKELETAL: No clubbing, cyanosis, or edema. ASSESSMENT: 1. Esophageal stricture PLAN: 1. Recommend proceeding with an upper endoscopy with rigid dilators. Past Medical History Past Medical History: GERD/Reflux, Hypertension, Osteoarthritis (OA), Seizure Disorder, Thyroid Disorder Additional Past Medical History / Comment(s): LAST SEIZURE 08/14, DDD, MIGRAINES, KIDNEY STONES, STATES FOOD IS GETTING STUCK, abdominal discomfort History of Any Multi-Drug Resistant Organisms: MRSA Date of last positivie culture/infection: 2011 MDRO Source:: left breast Past Surgical History: Appendectomy, Bariatric Surgery, Breast Surgery, Cholecystectomy, Hysterectomy Additional Past Surgical History / Comment(s): Gastric bypass in [place] 2012 ,panniculectomy, breast reduction 2014. CYSTOSCOPY WITH KIDNEY STONE REMOVAL 09/04/2020 ([facility]), EGD Past Anesthesia/Blood Transfusion Reactions: Previous Problems w/ Anesthesia, Motion Sickness Additional Past Anesthesia/Blood Transfusion Reaction / Comment(s): MIGRAINE AFTER ANESTHESIA Smoking Status: Current every day smoker - Past Family History Mother Family Medical History: Cancer Sister(s) Family Medical History: Deep Vein Thrombosis (DVT) Medications and Allergies Home Medications Medication Instructions Recorded Confirmed Type Topiramate [Topamax] 100 mg PO BID 08/01/17 11/30/20 History Linaclotide [Linzess] 145 mcg PO DAILY 02/11/20 11/30/20 History Naloxone HCl [Narcan] 4 mg NASAL DIRECTED PRN 02/11/20 11/30/20 History Ospemifene [Osphena] 60 mg PO DAILY 02/11/20 11/30/20 History ALPRAZolam [Xanax] 1 mg PO TID 06/04/20 11/30/20 History Ezetimibe [Zetia] 10 mg PO HS 06/04/20 11/30/20 History HYDROcodone/APAP 10-325MG [[place] 1 tab PO QID 06/04/20 11/30/20 History 10-325] Hyoscyamine Sulfate [Levsin] 0.125 mg PO DIRECTED 06/04/20 11/30/20 History Levothyroxine Sodium [Synthroid] 75 mg PO DAILY 06/04/20 11/30/20 History Pantoprazole Sodium [Protonix] 40 mg PO BID 06/04/20 11/30/20 History lamoTRIgine [LaMICtal] 200 mg PO DAILY 06/04/20 11/30/20 History levETIRAcetam [Keppra] 500 mg PO BID 06/04/20 11/30/20 History rOPINIRole HCL [Requip Xl] 2 mg PO HS 06/04/20 11/30/20 History traZODone HCL 100 mg PO HS 06/04/20 11/30/20 History Promethazine [Phenergan] 25 mg PO ONCE PRN 09/15/20 11/30/20 History Desvenlafaxine [Pristiq ER] 100 mg PO DAILY 10/26/20 11/30/20 History Tamsulosin [Flomax] 0.4 mg PO HS 10/26/20 11/30/20 History Allergies Allergy/AdvReac Type Severity Reaction Status Date / Time ketorolac [From Toradol] Allergy Nausea & Verified 11/30/20 12:04 Vomiting tramadol [From Ultram] Allergy Rash/Hives Verified 11/30/20 12:04 NSAIDS (Non-Steroidal AdvReac Nausea & Verified 11/30/20 12:04 Anti-Inflamma Vomiting
[~2020-12-03 08:10] MED LIST changes: +LACTATED RINGERS 1,000 ML IV SCH
[2020-12-03 09:28] VITALS: RESP 16; TEMP 97.6
[2020-12-03] MEDS ORDERED: MIDAZOLAM 2 MG/2 ML VIAL IV ONE (09:39)
[2020-12-03] MEDS ORDERED: LIDOCAINE 1% INJ 10MG/ML (20 ML MDV) ONE (09:51)
[2020-12-03] MEDS ORDERED: PROPOFOL 10 MG/ML 20 ML VIAL IV ONE (09:51)
--- NOTE | 2020-12-03 10:13 | P.PCN ---
Date of Procedure: 12/03/20 Description of Procedure: PREOPERATIVE DIAGNOSIS: Dysphagia. Esophageal dysmotility, upper esophagus POSTOPERATIVE DIAGNOSIS: Dysphagia. Esophageal stricture, upper esophagus OPERATION: Esophagogastroduodenoscopy with rigid dilator over the guidewire 60 Fr with dilation of esophagus. SURGEON: Liyah Shabazz MD ANESTHESIA: MAC. INDICATIONS: The patient is a 45-year-old male who presents with a history of dysphagia. Benefits and risks of the procedure were described. Informed consent was obtained. DESCRIPTION: The patient was brought into the endoscopy suite and laid in the left lateral decubitus position. After a timeout was confirmed, the procedure was initiated. An Olympus gastroscope was passed into the posterior oropharynx down to the distal esophagus and into her gastric pouch into her Yuri limb a retained suture was found along the anastomosis. The scope was entered into the gastric pouch without gastrojejunal ulceration. Stenosis along the upper esophageal sphincter was identified. To address her upper esophageal stricture, rigid dilator over guidewire was selected. Next using an [place] rigid dilator, a guidewire was placed through the gastroscope. Next the scope was withdrawn. A 60-[place] rigid [place] dilator was passed carefully along the posterior oropharynx to 40 cm and left in place for 2-3 minutes stretch. The dilator was withdrawn including the guidewire. The scope was reentered along the posterior oropharynx with no findings of full- thickness tear of the upper esophageal sphincter. No full-thickness injury was encountered. The GI tract was desufflated. The patient tolerated the procedure well. FINDINGS: No gastrojejunal anastomotic ulcer Upper esophageal stricture without ulceration dilated [place] rigid dilator 60-[place]an completed. RECOMMENDATIONS: Upper endoscopy as needed Plan - Discharge Summary Discharge Rx Participant: No New Discharge Prescriptions: Continue Topiramate [Topamax] 100 mg PO BID Ospemifene [Osphena] 60 mg PO DAILY Naloxone HCl [Narcan] 4 mg NASAL DIRECTED PRN PRN Reason: OVERDOSE Linaclotide [Linzess] 145 mcg PO DAILY HYDROcodone/APAP 10-325MG [[place] 10-325] 1 tab PO QID ALPRAZolam [Xanax] 1 mg PO TID levETIRAcetam [Keppra] 500 mg PO BID Pantoprazole Sodium [Protonix] 40 mg PO BID Levothyroxine Sodium [Synthroid] 75 mg PO DAILY lamoTRIgine [LaMICtal] 200 mg PO DAILY Ezetimibe [Zetia] 10 mg PO HS rOPINIRole HCL [Requip Xl] 2 mg PO HS traZODone HCL 100 mg PO HS Hyoscyamine Sulfate [Levsin] 0.125 mg PO DIRECTED Promethazine [Phenergan] 25 mg PO ONCE PRN PRN Reason: UPSET STOMACH Tamsulosin [Flomax] 0.4 mg PO HS Desvenlafaxine [Pristiq ER] 100 mg PO DAILY Cetirizine HCl/Pseudoephedrine [Zyrtec-D Tablet] 1 each PO DIRECTED Discharge Medication List Topiramate [Topamax] 100 mg PO BID 08/01/17 [History] Linaclotide [Linzess] 145 mcg PO DAILY 02/11/20 [History] Naloxone HCl [Narcan] 4 mg NASAL DIRECTED PRN 02/11/20 [History] Ospemifene [Osphena] 60 mg PO DAILY 02/11/20 [History] ALPRAZolam [Xanax] 1 mg PO TID 06/04/20 [History] Ezetimibe [Zetia] 10 mg PO HS 06/04/20 [History] HYDROcodone/APAP 10-325MG [[place] 10-325] 1 tab PO QID 06/04/20 [History] Hyoscyamine Sulfate [Levsin] 0.125 mg PO DIRECTED 06/04/20 [History] Levothyroxine Sodium [Synthroid] 75 mg PO DAILY 06/04/20 [History] Pantoprazole Sodium [Protonix] 40 mg PO BID 06/04/20 [History] lamoTRIgine [LaMICtal] 200 mg PO DAILY 06/04/20 [History] levETIRAcetam [Keppra] 500 mg PO BID 06/04/20 [History] rOPINIRole HCL [Requip Xl] 2 mg PO HS 06/04/20 [History] traZODone HCL 100 mg PO HS 06/04/20 [History] Promethazine [Phenergan] 25 mg PO ONCE PRN 09/15/20 [History] Desvenlafaxine [Pristiq ER] 100 mg PO DAILY 10/26/20 [History] Tamsulosin [Flomax] 0.4 mg PO HS 10/26/20 [History] Cetirizine HCl/Pseudoephedrine [Zyrtec-D Tablet] 1 each PO DIRECTED 12/03/20 [History] Follow up Appointment(s)/Referral(s): Liyah Shabazz MD [STAFF PHYSICIAN] - 12/15/20 Patient Instructions/Handouts: Esophageal Dilation (DC) Activity/Diet/Wound Care/Special Instructions: Warm beverages today. Discharge Disposition: HOME SELF-CARE
[2020-12-03 10:30] VITALS: BP 120/84; PULSE 77
== END 2020-12-03 10:51 | disposition home or self-care (01) ==
LOC: ORWHC2ENDO 08:10
PROVIDERS: ATTEND Surgery Plastic and Reconstructive Surgery
DX: K22.2 Esophageal obstruction (principal); K21.9 Gastro-esophageal reflux disease without esophagitis; I10 Essential (primary) hypertension; M19.90 Unspecified osteoarthritis, unspecified site; G40.909 Epilepsy, unspecified, not intractable, without status epilepticus; E07.9 Disorder of thyroid, unspecified; G43.909 Migraine, unspecified, not intractable, without status migrainosus; Z87.442 Personal history of urinary calculi; Z86.14 Personal history of Methicillin resistant Staphylococcus aureus infection; Z98.84 Bariatric surgery status; Z90.49 Acquired absence of other specified parts of digestive tract; Z90.710 Acquired absence of both cervix and uterus; Z98.890 Other specified postprocedural states; Z90.89 Acquired absence of other organs; F17.200 Nicotine dependence, unspecified, uncomplicated; Z80.9 Family history of malignant neoplasm, unspecified; Z82.49 Family history of ischemic heart disease and other diseases of the circulatory system; Z79.890 Hormone replacement therapy; Z79.891 Long term (current) use of opiate analgesic; Z79.899 Other long term (current) drug therapy; Z88.6 Allergy status to analgesic agent; Z88.5 Allergy status to narcotic agent
CPT/HCPCS: 43248; J2250; J2001; J2704; 43249

== ENCOUNTER → 2021-01-12 | Outpatient (CLI) | payer BC ==
[2021-01-12 20:20] LABS: INR 0.9 (<1.2); Partial Thromboplastin Time 23.3 sec (22.0-30.0); Prothrombin Time 9.4 sec (9.0-12.0)
[2021-01-12 22:55] LABS: HCT 33.6 % (37.2-46.3); HGB 10.1 g/dL (12.0-15.0); MCH 30.2 pg (27.0-32.0); MCHC 30.1 g/dL (32.0-37.0); MCV 100.6 fL (80.0-97.0); Mean Platelet Volume 9.8 fL (9.5-12.2); Platelet Count 437 X 10*3/uL (140-440); RBC 3.34 X 10*6/uL (4.10-5.20); RDW 15.2 % (11.5-14.5); WBC 7.99 X 10*3/uL (4.50-10.00)
[2021-01-13 03:33] LABS: Hemoglobin A1C 5.9 % (4.0-6.0)
[2021-01-13 21:51] LABS: % Iron Saturation 2.98 (12.00-45.00); African American GFR (CKD) 104.7 (60.0-200.0); Albumin 4.2 g/dL (3.80-4.90); Anion Gap 7.5 mmol/L (4.00-12.00); BUN/Creat Ratio 18.75 Ratio (12.00-20.00); Calcium 9.4 mg/dL (8.7-10.3); Carbon Dioxide 23.5 mmol/L (21.6-31.8); Chol/HDL Ratio 3.17; Globulin 2.1 g/dL (1.6-3.3); LDL Cholesterol,Calculated 74.4 mg/dL (0.0-131.0); Magnesium 2.2 mg/dL (1.5-2.4); Non-African American GFR(CKD) 90.3 (60.0-200.0); Phosphorus 5.5 mg/dL (2.4-5.1); Potassium 5.2 mmol/L (3.5-5.5); Total Bilirubin 0.1 mg/dL (0.3-1.2); Total Protein 6.3 g/dL (6.2-8.2); VLDL Calculation 55.6 mg/dL (5.00-40.00)
[2021-01-13 22:00] LABS: Folate, Serum 3.6 ng/mL
[2021-01-13 22:16] LABS: Ferritin 2.6 ng/mL (10.0-291.0)
[2021-01-14 12:02] LABS: Zinc, Serum 61 ug/dL (60-130)
[2021-01-15 06:09] LABS: Vitamin A 57 ug/dL (38-106)
[2021-01-15 11:24] LABS: Vit B1(Thiamine) 64 ug/L (38-122)
== END | disposition home or self-care (01) ==
LOC: LABWHC1 15:09
PROVIDERS: ATTEND Surgery Plastic and Reconstructive Surgery
DX: E21.1 Secondary hyperparathyroidism, not elsewhere classified (principal); E66.01 Morbid (severe) obesity due to excess calories; E89.1 Postprocedural hypoinsulinemia; D50.8 Other iron deficiency anemias; K90.89 Other intestinal malabsorption; E44.0 Moderate protein-calorie malnutrition; E55.9 Vitamin D deficiency, unspecified; K74.1 Hepatic sclerosis; N19 Unspecified kidney failure; K50.90 Crohn's disease, unspecified, without complications
CPT/HCPCS: 36415; 80053; 80061; 82306; 82525; 82607; 82728; 82746; 83036; 83540; 83550; 83735; 83970; 84100; 84134; 84255; 84425; 84443; 84590; 84630; 85027; 85610; 85730

== ENCOUNTER 2021-08-16 09:23 | Day surgery (SDC) | payer BC ==
[2021-08-13 09:19] VITALS: BMI 27.8
--- NOTE | 2021-08-16 07:00 | P.GSHP ---
History of Present Illness H&P Date: 08/16/21 CHIEF COMPLAINT: GERD HISTORY OF PRESENT ILLNESS: The patient is a 45-year-old female who presents reports gastroesophageal reflux disease. Upper endoscopy was offered for further evaluation and management. PAST MEDICAL HISTORY: Please see list. PAST SURGICAL HISTORY: Please see list. MEDICATIONS: Please see list. ALLERGIES: Please see list. SOCIAL HISTORY: No illicit drug use FAMILY HISTORY: No reports of Crohn disease or ulcerative colitis. REVIEW OF ORGAN SYSTEMS: CONSTITUTIONAL: No reports of fevers or chills. GI: Denies any blood in stools or constipation. PHYSICAL EXAM: VITAL SIGNS: Stable GENERAL: Well-developed and pleasant in no acute distress. HEENT: No scleral icterus. Extraocular movements grossly intact. Moist buccal mucosa. NECK: Supple without lymphadenopathy. CHEST: Unlabored respirations. Equal bilateral excursions. CARDIOVASCULAR: Regular rate and rhythm. Distal 2+ pulses. ABDOMEN: Soft, nondistended. MUSCULOSKELETAL: No clubbing, cyanosis, or edema. ASSESSMENT: 1. Gastroesophageal reflux disease PLAN: 1. Recommend proceeding with an upper endoscopy Past Medical History Past Medical History: Asthma, Fibromyalgia, GERD/Reflux, Hyperlipidemia, Osteoarthritis (OA), Seizure Disorder, Thyroid Disorder Additional Past Medical History / Comment(s): LAST SEIZURE 04/2021, DDD, MIGRAINES, KIDNEY STONES, STATES FOOD IS GETTING STUCK, abdominal discomfort, low blood pressure, environmental allergies, "bleeding ulcer", hiatal hernia History of Any Multi-Drug Resistant Organisms: MRSA Date of last positivie culture/infection: 2011 MDRO Source:: left breast Past Surgical History: Appendectomy, Bariatric Surgery, Breast Surgery, Cholecystectomy, Hernia Repair, Hysterectomy Additional Past Surgical History / Comment(s): Gastric bypass in [place] 2012 ,panniculectomy, breast reduction 2014. CYSTOSCOPY WITH KIDNEY STONE REMOVAL 09/04/2020 , EGD Past Anesthesia/Blood Transfusion Reactions: Previous Problems w/ Anesthesia, Motion Sickness Additional Past Anesthesia/Blood Transfusion Reaction / Comment(s): MIGRAINE AFTER ANESTHESIA Smoking Status: Current every day smoker - Past Family History Mother Family Medical History: Cancer Sister(s) Family Medical History: Deep Vein Thrombosis (DVT) Medications and Allergies Home Medications Medication Instructions Recorded Confirmed Type Topiramate [Topamax] 25 mg PO QAM 08/01/17 08/13/21 History Linaclotide [Linzess] 145 mcg PO DAILY 02/11/20 08/13/21 History Naloxone HCl [Narcan] 4 mg NASAL DIRECTED PRN 02/11/20 08/13/21 History Ospemifene [Osphena] 60 mg PO DAILY 02/11/20 08/13/21 History ALPRAZolam [Xanax] 1 mg PO TID 06/04/20 08/13/21 History Ezetimibe [Zetia] 10 mg PO HS 06/04/20 08/13/21 History HYDROcodone/APAP 10-325MG [[place] 1 tab PO QID 06/04/20 08/13/21 History 10-325] Hyoscyamine Sulfate [Levsin] 0.125 mg PO DIRECTED PRN 06/04/20 08/13/21 History Levothyroxine Sodium [Synthroid] 75 mg PO DAILY 06/04/20 08/13/21 History Pantoprazole Sodium [Protonix] 40 mg PO BID 06/04/20 08/13/21 History lamoTRIgine [LaMICtal] 200 mg PO DAILY 06/04/20 08/13/21 History levETIRAcetam [Keppra] 1,000 mg PO BID 06/04/20 08/13/21 History rOPINIRole HCL [Requip Xl] 2 mg PO HS 06/04/20 08/13/21 History Promethazine [Phenergan] 25 mg PO ONCE PRN 09/15/20 08/13/21 History Desvenlafaxine [Pristiq ER] 100 mg PO HS 10/26/20 08/13/21 History Tamsulosin [Flomax] 0.4 mg PO HS 10/26/20 08/13/21 History Cetirizine HCl/Pseudoephedrine 1 each PO DAILY 12/03/20 08/13/21 History [Zyrtec-D Tablet] Fluticasone Nasal [place] [Flonase 1 spray EA NOSTRIL DAILY 08/13/21 08/13/21 History Nasal [place]] Montelukast [Singulair] 10 mg PO HS 08/13/21 08/13/21 History Qulipta 60 mg PO DAILY 08/13/21 08/13/21 History Topiramate [Topamax] 50 mg PO HS 08/13/21 08/13/21 History Zolpidem Tartrate [Ambien] 5 mg PO HS 08/13/21 08/13/21 History Allergies Allergy/AdvReac Type Severity Reaction Status Date / Time ketorolac [From Toradol] Allergy Nausea & Verified 08/13/21 09:00 Vomiting tramadol [From Ultram] Allergy Rash/Hives/chest Verified 08/13/21 09:00 pain NSAIDS (Non-Steroidal AdvReac Nausea & Verified 08/13/21 09:00 Anti-Inflamma Vomiting
[2021-08-16 09:45] VITALS: TEMP 96.7
[2021-08-16] MEDS ORDERED: LIDOCAINE 1% (10MG/ML) FOR IV START INTRADERMA ONE (10:00)
[2021-08-16] MEDS ORDERED: LACTATED RINGERS 1,000 ML IV ONE (10:00)
[2021-08-16] MEDS ORDERED: LIDOCAINE 1% INJ 10MG/ML (20 ML MDV) ONE (10:21)
[2021-08-16] MEDS ORDERED: PROPOFOL 10 MG/ML 20 ML VIAL IV ONE (10:21)
--- NOTE | 2021-08-16 10:50 | P.PCN ---
Date of Procedure: 08/16/21 Description of Procedure: PREOPERATIVE DIAGNOSIS: Dysphagia, esophageal Substernal pain Epigastric abdominal pain Nausea with vomiting. POSTOPERATIVE DIAGNOSIS: Dysphagia, esophageal Substernal pain Epigastric abdominal pain Nausea with vomiting. Esophageal dysmotility Gastritis Diaphragmatic hiatal hernia Gastric ulcer OPERATION: Esophagogastrojejunoscopy with rigid dilatation, 54 Fr Esophagogastrojejunoscopy with cold biopsy forcep SURGEON: Liyah Shabazz MD ANESTHESIA: MAC. INDICATIONS: The patient is a 45-year-old female who presents with a history of dysphagia, nausea and vomiting, substernal epigastric abdominal pain. Benefits and risks of the procedure were described. Informed consent was obtained. DESCRIPTION: The patient was brought into the endoscopy suite and laid in the left lateral decubitus position. After a timeout was confirmed, the procedure was initiated. An Olympus gastroscope was passed along the posterior oropharynx down to the distal esophagus where the squamocolumnar junction was unremarkable. The gastric pouch was entered. A 3 cm diaphragmatic hiatal hernia was identified. Additional findings below. Esophageal dysmotility was found as the adult gastroscope was 9.5 mm in size. A guidewire was placed through the scope. The scope was removed. A rigid dilator 54-[place] Citizen placed for dilation performed for 2 minutes. Gastritis with recent bleeding was identified along the gastric pouch. Cold forceps biopsies were obtained. The patient tolerated the procedure well. FINDINGS: Esophageal dysmotility addressed with rigid dilator, 54-[place] Citizen Gastritis with gastric ulcer obtained with biopsies. Diaphragmatic hiatal hernia 3 cm Squamocolumnar junction at 36 cm from the incisors Diaphragmatic hiatus at 39 cm from the incisors RECOMMENDATIONS: 1. Carafate 1 g twice a day. 2. May benefit from hiatal hernia repair. Plan - Discharge Summary New Discharge Prescriptions: New Sucralfate [Carafate] 1 gm PO BID #30 tablet Continue Topiramate [Topamax] 25 mg PO QAM Ospemifene [Osphena] 60 mg PO DAILY Naloxone HCl [Narcan] 4 mg NASAL DIRECTED PRN PRN Reason: OVERDOSE Linaclotide [Linzess] 145 mcg PO DAILY HYDROcodone/APAP 10-325MG [[place] 10-325] 1 tab PO QID ALPRAZolam [Xanax] 1 mg PO TID levETIRAcetam [Keppra] 1,000 mg PO BID Pantoprazole Sodium [Protonix] 40 mg PO BID Levothyroxine Sodium [Synthroid] 75 mg PO DAILY lamoTRIgine [LaMICtal] 200 mg PO DAILY Ezetimibe [Zetia] 10 mg PO HS rOPINIRole HCL [Requip Xl] 2 mg PO HS Hyoscyamine Sulfate [Levsin] 0.125 mg PO DIRECTED PRN PRN Reason: gastritis Promethazine [Phenergan] 25 mg PO ONCE PRN PRN Reason: UPSET STOMACH Tamsulosin [Flomax] 0.4 mg PO HS Desvenlafaxine [Pristiq ER] 100 mg PO HS Cetirizine HCl/Pseudoephedrine [Zyrtec-D Tablet] 1 each PO DAILY Topiramate [Topamax] 50 mg PO HS Montelukast [Singulair] 10 mg PO HS Zolpidem Tartrate [Ambien] 5 mg PO HS Qulipta 60 mg PO DAILY Fluticasone Nasal [place] [Flonase Nasal [place]] 1 spray EA NOSTRIL DAILY Discharge Medication List Topiramate [Topamax] 25 mg PO QAM 08/01/17 [History] Linaclotide [Linzess] 145 mcg PO DAILY 02/11/20 [History] Naloxone HCl [Narcan] 4 mg NASAL DIRECTED PRN 02/11/20 [History] Ospemifene [Osphena] 60 mg PO DAILY 02/11/20 [History] ALPRAZolam [Xanax] 1 mg PO TID 06/04/20 [History] Ezetimibe [Zetia] 10 mg PO HS 06/04/20 [History] HYDROcodone/APAP 10-325MG [[place] 10-325] 1 tab PO QID 06/04/20 [History] Hyoscyamine Sulfate [Levsin] 0.125 mg PO DIRECTED PRN 06/04/20 [History] Levothyroxine Sodium [Synthroid] 75 mg PO DAILY 06/04/20 [History] Pantoprazole Sodium [Protonix] 40 mg PO BID 06/04/20 [History] lamoTRIgine [LaMICtal] 200 mg PO DAILY 06/04/20 [History] levETIRAcetam [Keppra] 1,000 mg PO BID 06/04/20 [History] rOPINIRole HCL [Requip Xl] 2 mg PO HS 06/04/20 [History] Promethazine [Phenergan] 25 mg PO ONCE PRN 09/15/20 [History] Desvenlafaxine [Pristiq ER] 100 mg PO HS 10/26/20 [History] Tamsulosin [Flomax] 0.4 mg PO HS 10/26/20 [History] Cetirizine HCl/Pseudoephedrine [Zyrtec-D Tablet] 1 each PO DAILY 12/03/20 [History] Fluticasone Nasal [place] [Flonase Nasal [place]] 1 spray EA NOSTRIL DAILY 08/13/21 [History] Montelukast [Singulair] 10 mg PO HS 08/13/21 [History] Qulipta 60 mg PO DAILY 08/13/21 [History] Topiramate [Topamax] 50 mg PO HS 08/13/21 [History] Zolpidem Tartrate [Ambien] 5 mg PO HS 08/13/21 [History] Sucralfate [Carafate] 1 gm PO BID #30 tablet 08/16/21 [Rx] Follow up Appointment(s)/Referral(s): Liyah Shabazz MD [STAFF PHYSICIAN] - 09/07/21 Patient Instructions/Handouts: Hiatal Hernia (ED), Gastritis (DC), Diet for Stomach Ulcers and Gastritis (ED) Discharge Disposition: HOME SELF-CARE
[2021-08-16 11:00] VITALS: RESP 16
[2021-08-16 11:25] VITALS: BP 114/68; PULSE 65
== END 2021-08-16 11:29 | disposition home or self-care (01) ==
LOC: ORWHC2ENDO 09:23
PROVIDERS: ATTEND Surgery Plastic and Reconstructive Surgery
DX: K29.51 Unspecified chronic gastritis with bleeding (principal); K22.4 Dyskinesia of esophagus; K44.9 Diaphragmatic hernia without obstruction or gangrene; J45.909 Unspecified asthma, uncomplicated; M79.7 Fibromyalgia; K21.9 Gastro-esophageal reflux disease without esophagitis; E78.5 Hyperlipidemia, unspecified; M19.90 Unspecified osteoarthritis, unspecified site; G40.909 Epilepsy, unspecified, not intractable, without status epilepticus; E07.9 Disorder of thyroid, unspecified; G43.909 Migraine, unspecified, not intractable, without status migrainosus; Z87.442 Personal history of urinary calculi; Z86.14 Personal history of Methicillin resistant Staphylococcus aureus infection; Z90.49 Acquired absence of other specified parts of digestive tract; Z90.710 Acquired absence of both cervix and uterus; Z98.890 Other specified postprocedural states; F17.200 Nicotine dependence, unspecified, uncomplicated; Z80.9 Family history of malignant neoplasm, unspecified; Z82.49 Family history of ischemic heart disease and other diseases of the circulatory system; Z79.890 Hormone replacement therapy; Z79.891 Long term (current) use of opiate analgesic; Z79.899 Other long term (current) drug therapy; Z88.6 Allergy status to analgesic agent; Z88.5 Allergy status to narcotic agent
CPT/HCPCS: 88305; 43239; 43248; J2001; J2704; 43249

== ENCOUNTER → 2021-12-14 | Outpatient (CLI) | payer BC ==
[2021-12-14 13:01] LABS: INR 0.8 (<1.2); Partial Thromboplastin Time 24.8 sec (22.0-30.0); Prothrombin Time 9.4 sec (9.0-12.0)
[2021-12-14 20:02] LABS: Chol/HDL Ratio 3.44 Ratio; LDL Cholesterol,Calculated 80.6 mg/dL (0.0-131.0); Prealbumin 23.8 mg/dL (18.0-42.0)
[2021-12-14 20:29] LABS: % Iron Saturation 19.48 (12.00-45.00); ALT 30 U/L (8-44); AST 19 U/L (13-35); African American GFR (CKD) 130.2 (60.0-200.0); Albumin 4.2 g/dL (3.8-4.9); Albumin/Globulin Ratio 1.61 (1.60-3.17); Alkaline Phosphatase 136 U/L (41-126); BUN/Creat Ratio 30.68 Ratio (12.00-20.00); Blood Urea Nitrogen 17.7 mg/dL (9.0-27.0); Calcium 9.5 mg/dL (8.7-10.3); Carbon Dioxide 24.4 mmol/L (20.0-27.5); Chloride 105 mmol/L (96-109); Ferritin 30.1 ng/mL (10.0-291.0); Globulin 2.6 g/dL (1.6-3.3); Glucose 87 mg/dL (70-110); Iron 92 ug/dL (50-170); Magnesium 2.2 mg/dL (1.5-2.4); Non-African American GFR(CKD) 112.3 (60.0-200.0); Phosphorus 4.8 mg/dL (2.4-5.1); Potassium 4.5 mmol/L (3.5-5.5); Sodium 141 mmol/L (135-145); Total Bilirubin <0.15 mg/dL (0.30-1.20); Total Iron Binding Capacity 473 ug/dL (228-460); Total Protein 6.9 g/dL (6.2-8.2)
[2021-12-14 21:49] LABS: HCT 43.7 % (37.2-46.3); HGB 14.1 g/dL (12.0-15.0); MCH 33.3 pg (27.0-32.0); MCHC 32.3 g/dL (32.0-37.0); MCV 103.1 fL (80.0-97.0); Mean Platelet Volume 10.1 fL (9.5-12.2); NRBC Per 100 WBC 0 /100 WBCS (0.0-0.0); Platelet Count 354 X 10*3/uL (140-440); RBC 4.24 X 10*6/uL (4.10-5.20); WBC 6.22 X 10*3/uL (4.50-10.00)
[2021-12-15 13:29] LABS: Zinc, Serum 114 ug/dL (60-130)
[2021-12-16 06:09] LABS: Vitamin A 50 ug/dL (38-106)
== END | disposition home or self-care (01) ==
LOC: LABWHC1 11:21
PROVIDERS: ATTEND Surgery Plastic and Reconstructive Surgery
DX: E21.1 Secondary hyperparathyroidism, not elsewhere classified (principal); E89.1 Postprocedural hypoinsulinemia; E44.0 Moderate protein-calorie malnutrition; E66.01 Morbid (severe) obesity due to excess calories; K74.1 Hepatic sclerosis; D50.8 Other iron deficiency anemias; N19 Unspecified kidney failure; K50.90 Crohn's disease, unspecified, without complications
CPT/HCPCS: 36415; 80053; 80061; 82306; 82525; 82607; 82728; 82746; 83036; 83540; 83550; 83735; 83970; 84100; 84134; 84255; 84425; 84443; 84590; 84630; 85027; 85610; 85730

== ENCOUNTER 2022-09-19 05:54 | Day surgery (SDC) | payer BC ==
[2022-09-15 13:14] VITALS: BMI 22.8
[2022-09-19] MEDS ORDERED: LACTATED RINGERS 1,000 ML IV SCH (06:30)
[2022-09-19] MEDS ORDERED: LIDOCAINE 1% (10MG/ML) FOR IV START INTRADERMA PRN (06:30)
[2022-09-19 07:14] VITALS: RESP 18; TEMP 97
[2022-09-19] MEDS ORDERED: MEPERIDINE 50 MG/ML SYRINGE IVP ONE (07:24)
[2022-09-19] MEDS ORDERED: MIDAZOLAM 2 MG/2 ML VIAL IVP ONE (07:25)
--- NOTE | 2022-09-19 07:26 | P.GSHP ---
History of Present Illness H&P Date: 09/19/22 CHIEF COMPLAINT: GERD HISTORY OF PRESENT ILLNESS: The patient is a 46-year-old female who presents reports gastroesophageal reflux disease. Upper endoscopy was offered for further evaluation and management. PAST MEDICAL HISTORY: Please see list. PAST SURGICAL HISTORY: Please see list. MEDICATIONS: Please see list. ALLERGIES: Please see list. SOCIAL HISTORY: No illicit drug use FAMILY HISTORY: No reports of Crohn disease or ulcerative colitis. REVIEW OF ORGAN SYSTEMS: CONSTITUTIONAL: No reports of fevers or chills. GI: Denies any blood in stools or constipation. PHYSICAL EXAM: VITAL SIGNS: Stable GENERAL: Well-developed and pleasant in no acute distress. HEENT: No scleral icterus. Extraocular movements grossly intact. Moist buccal mucosa. NECK: Supple without lymphadenopathy. CHEST: Unlabored respirations. Equal bilateral excursions. CARDIOVASCULAR: Regular rate and rhythm. Distal 2+ pulses. ABDOMEN: Soft, nondistended. MUSCULOSKELETAL: No clubbing, cyanosis, or edema. ASSESSMENT: 1. Gastroesophageal reflux disease PLAN: 1. Recommend proceeding with an upper endoscopy Past Medical History Past Medical History: Asthma, Fibromyalgia, GERD/Reflux, Hyperlipidemia, Hypertension, Osteoarthritis (OA), Seizure Disorder, Thyroid Disorder Additional Past Medical History / Comment(s): LAST SEIZURE 04/2021, DDD, MIGRAINES, KIDNEY STONES, STATES FOOD IS GETTING STUCK, abdominal discomfort, environmental allergies, "bleeding ulcer", hiatal hernia History of Any Multi-Drug Resistant Organisms: MRSA Date of last positivie culture/infection: 2011 MDRO Source:: left breast Past Surgical History: Appendectomy, Bariatric Surgery, Breast Surgery, Cholecystectomy, Hernia Repair, Hysterectomy Additional Past Surgical History / Comment(s): Gastric bypass in [place] 2012 ,panniculectomy, breast reduction 2014, CYSTOSCOPY WITH KIDNEY STONE REMOVAL 09/04/2020 , EGD Past Anesthesia/Blood Transfusion Reactions: Previous Problems w/ Anesthesia, Motion Sickness Additional Past Anesthesia/Blood Transfusion Reaction / Comment(s): MIGRAINE AFTER ANESTHESIA Smoking Status: Current every day smoker - Past Family History Mother Family Medical History: Cancer Sister(s) Family Medical History: Deep Vein Thrombosis (DVT) Medications and Allergies Home Medications Medication Instructions Recorded Confirmed Type Linaclotide [Linzess] 145 mcg PO DAILY 02/11/20 09/15/22 History Naloxone HCl [Narcan] 4 mg NASAL DIRECTED PRN 02/11/20 09/15/22 History ALPRAZolam [Xanax] 1 mg PO TID 06/04/20 09/15/22 History Ezetimibe [Zetia] 10 mg PO HS 06/04/20 09/15/22 History HYDROcodone/APAP 10-325MG [[place] 1 tab PO QID 06/04/20 09/15/22 History 10-325] Hyoscyamine Sulfate [Levsin] 0.125 mg PO DIRECTED PRN 06/04/20 09/15/22 History Levothyroxine Sodium [Synthroid] 75 mg PO DAILY 06/04/20 09/15/22 History Pantoprazole Sodium [Protonix] 40 mg PO BID 06/04/20 09/15/22 History levETIRAcetam [Keppra] 1,000 mg PO BID 06/04/20 09/15/22 History rOPINIRole HCL [Requip Xl] 3 mg PO HS 06/04/20 09/15/22 History Promethazine [Phenergan] 25 mg PO ONCE PRN 09/15/20 09/15/22 History Montelukast [Singulair] 10 mg PO HS 08/13/21 09/15/22 History Qulipta 60 mg PO DAILY 08/13/21 08/31/22 History Sucralfate [Carafate] 1 gm PO BID #30 tablet 08/16/21 09/15/22 Rx Lasmiditan Succinate [Reyvow] 100 mg PO DIRECTED PRN 01/19/22 09/15/22 History Ubrogepant [Ubrelvy] 100 mg PO DIRECTED PRN 01/19/22 09/15/22 History Cyanocobalamin [Vitamin B-12 1,000 mcg SQ DIRECTED 08/31/22 09/15/22 History Injection] traZODone HCL 100 mg PO HS 08/31/22 09/15/22 History Allergy Shots WEEKLY 09/15/22 History Multivitamins, Thera [Multivitamin 1 tab PO DAILY 09/15/22 09/15/22 History (formulary)] Propranolol [Inderal] 10 mg PO BID 09/15/22 09/15/22 History Allergies Allergy/AdvReac Type Severity Reaction Status Date / Time ketorolac [From Toradol] Allergy Nausea & Verified 09/19/22 07:12 Vomiting tramadol [From Ultram] Allergy Rash/Hives/chest Verified 09/19/22 07:12 pain NSAIDS (Non-Steroidal AdvReac Nausea & Verified 09/19/22 07:12 Anti-Inflamma Vomiting Surgical - Exam Vital Signs Temp Pulse Resp BP Pulse Ox 97.0 F L 82 18 106/55 99 09/19/22 07:05 09/19/22 07:05 09/19/22 07:05 09/19/22 07:05 09/19/22 07:05
[2022-09-19] MEDS ORDERED: LIDOCAINE 2% INJ 20 MG/ML (2 ML VIAL) ONE (07:48)
[2022-09-19] MEDS ORDERED: PROPOFOL 10 MG/ML 20 ML VIAL IV ONE (07:48)
--- NOTE | 2022-09-19 08:22 | P.PCN ---
Date of Procedure: 09/19/22 Description of Procedure: PREOPERATIVE DIAGNOSES: 1. Gastroesophageal reflux disease 2. Nausea and vomiting. 3. History of gastric bypass. 4. History of gastric ulcers. 5. Epigastric abdominal pain. POSTOPERATIVE DIAGNOSES: 1. Gastroesophageal reflux disease 2. Gastrojejunal ulcer with bleeding without stricture 3. Diaphragmatic hiatal hernia 4. Presbyesophagus PROCEDURE PERFORMED: Esophagogastrojejunoscopy with biopsies gastric pouch and jejunum. SURGEON: Liyah Shabazz MD ANESTHESIA: MAC. INDICATIONS: The patient is a 46-year-old female with prior history of Yuri-en-Y gastric bypass. She has had intermittent nausea and vomiting, epigastric abdominal pain and personal history of gastric ulcers with gastroesophageal reflux disease. Upper endoscopy was offered for further evaluation and management. DESCRIPTION: Patient was brought to the endoscopy suite and laid in the left lateral decubitus position. After adequate IV sedation, a bite block was placed. An Olympus gastroscope was passed along the posterior oropharynx down to the distal esophagus where the squamocolumnar junction was found at approximately 35 cm from the incisors. His anastomosis was found at 40 cm, consistent with approximately 5 cm gastric pouch. The scope was advanced 60 cm from the incisors. No evidence of foreign body was found. Active gastrojejunal ulcerations with bleeding were encountered. Biopsies was obtained of the gastric pouch and jejunum.The GI tract was desufflated. The patient tolerated the procedure well. FINDINGS: 1. Acute gastrojejunal ulceration with bleeding 2. No foreign body found along the anastomosis. 3. Diaphragmatic hiatal hernia, sliding, 2 cm 4. Presbyesophagus PLAN: 1. Strict tobacco cessation and counseling advised for recurrent gastric ulcers despite treatment 2. May benefit from additional studies with history of epigastric abdominal pa in such as upper GI barium study. Plan - Discharge Summary New Discharge Prescriptions: Continue Naloxone HCl [Narcan] 4 mg NASAL DIRECTED PRN PRN Reason: OVERDOSE Linaclotide [Linzess] 145 mcg PO DAILY HYDROcodone/APAP 10-325MG [[place] 10-325] 1 tab PO QID ALPRAZolam [Xanax] 1 mg PO TID levETIRAcetam [Keppra] 1,000 mg PO BID Pantoprazole Sodium [Protonix] 40 mg PO BID Levothyroxine Sodium [Synthroid] 75 mg PO DAILY Ezetimibe [Zetia] 10 mg PO HS rOPINIRole HCL [Requip Xl] 3 mg PO HS Hyoscyamine Sulfate [Levsin] 0.125 mg PO DIRECTED PRN PRN Reason: gastritis Promethazine [Phenergan] 25 mg PO ONCE PRN PRN Reason: UPSET STOMACH Montelukast [Singulair] 10 mg PO HS Ubrogepant [Ubrelvy] 100 mg PO DIRECTED PRN PRN Reason: Migraine Headache traZODone HCL 100 mg PO HS Multivitamins, Thera [Multivitamin (formulary)] 1 tab PO DAILY Allergy Shots WEEKLY Propranolol [Inderal] 10 mg PO BID Qulipta 60 mg PO DAILY Sucralfate [Carafate] 1 gm PO BID #30 tablet Lasmiditan Succinate [Reyvow] 100 mg PO DIRECTED PRN PRN Reason: Migraine Headache Cyanocobalamin [Vitamin B-12 Injection] 1,000 mcg SQ DIRECTED Discharge Medication List Linaclotide [Linzess] 145 mcg PO DAILY 02/11/20 [History] Naloxone HCl [Narcan] 4 mg NASAL DIRECTED PRN 02/11/20 [History] ALPRAZolam [Xanax] 1 mg PO TID 06/04/20 [History] Ezetimibe [Zetia] 10 mg PO HS 06/04/20 [History] HYDROcodone/APAP 10-325MG [[place] 10-325] 1 tab PO QID 06/04/20 [History] Hyoscyamine Sulfate [Levsin] 0.125 mg PO DIRECTED PRN 06/04/20 [History] Levothyroxine Sodium [Synthroid] 75 mg PO DAILY 06/04/20 [History] Pantoprazole Sodium [Protonix] 40 mg PO BID 06/04/20 [History] levETIRAcetam [Keppra] 1,000 mg PO BID 06/04/20 [History] rOPINIRole HCL [Requip Xl] 3 mg PO HS 06/04/20 [History] Promethazine [Phenergan] 25 mg PO ONCE PRN 09/15/20 [History] Montelukast [Singulair] 10 mg PO HS 08/13/21 [History] Qulipta 60 mg PO DAILY 08/13/21 [History] Sucralfate [Carafate] 1 gm PO BID #30 tablet 08/16/21 [Rx] Lasmiditan Succinate [Reyvow] 100 mg PO DIRECTED PRN 01/19/22 [History] Ubrogepant [Ubrelvy] 100 mg PO DIRECTED PRN 01/19/22 [History] Cyanocobalamin [Vitamin B-12 Injection] 1,000 mcg SQ DIRECTED 08/31/22 [History] traZODone HCL 100 mg PO HS 08/31/22 [History] Allergy Shots WEEKLY 09/15/22 [History] Multivitamins, Thera [Multivitamin (formulary)] 1 tab PO DAILY 09/15/22 [History] Propranolol [Inderal] 10 mg PO BID 09/15/22 [History] [facility]ment(s[facility] [place] [facility] [place] [facility] Patient Instructions/Handouts: How to Stop Smoking (DC), Hiatal Hernia (DC), Diet for Stomach Ulcers and Gastritis (ED) Activity/Diet/Wound Care/Special Instructions: Stop smoking Discharge Disposition: HOME SELF-CARE
[2022-09-19 08:35] VITALS: PULSE 71
[2022-09-19] MEDS ORDERED: LACTATED RINGERS 1,000 ML IV ONE (08:45)
[2022-09-19 08:58] VITALS: BP 94/67
== END 2022-09-19 09:14 | disposition home or self-care (01) ==
LOC: ORWHC2ENDO 05:54
PROVIDERS: ATTEND Surgery Plastic and Reconstructive Surgery
DX: K91.89 Other postprocedural complications and disorders of digestive system (principal); K31.9 Disease of stomach and duodenum, unspecified; K21.00 Gastro-esophageal reflux disease with esophagitis, without bleeding; K28.0 Acute gastrojejunal ulcer with hemorrhage; K44.9 Diaphragmatic hernia without obstruction or gangrene; K22.89 Other specified disease of esophagus; Z98.84 Bariatric surgery status; Z87.19 Personal history of other diseases of the digestive system; J45.909 Unspecified asthma, uncomplicated; M79.7 Fibromyalgia; E78.5 Hyperlipidemia, unspecified; I10 Essential (primary) hypertension; M19.90 Unspecified osteoarthritis, unspecified site; G40.909 Epilepsy, unspecified, not intractable, without status epilepticus; G43.909 Migraine, unspecified, not intractable, without status migrainosus; Z87.442 Personal history of urinary calculi; Z86.14 Personal history of Methicillin resistant Staphylococcus aureus infection; Z90.49 Acquired absence of other specified parts of digestive tract; Z98.890 Other specified postprocedural states; F17.200 Nicotine dependence, unspecified, uncomplicated; Z83.2 Family history of diseases of the blood and blood-forming organs and certain disorders involving the immune mechanism; Z79.899 Other long term (current) drug therapy; Z79.891 Long term (current) use of opiate analgesic; E07.9 Disorder of thyroid, unspecified; Z79.890 Hormone replacement therapy; Z79.1 Long term (current) use of non-steroidal anti-inflammatories (NSAID); Z88.5 Allergy status to narcotic agent; Z88.6 Allergy status to analgesic agent; Z88.8 Allergy status to other drugs, medicaments and biological substances; Z71.6 Tobacco abuse counseling
CPT/HCPCS: 43239; J2250; J2175; J2704; J2001; 88305; 88312

== ENCOUNTER 2022-09-26 07:43 | Day surgery (SDC) | payer BC ==
[~2022-09-26 07:43] MED LIST changes: +ACETAMINOPHEN TAB 500 MG TAB PO STA; +DEXAMETHASONE SOD PHOSPHATE 4 MG/ML 1 ML VIAL IV ONE; +HEPARIN SODIUM,PORCINE/PF 5,000 UNIT/0.5 ML SYRINGE SQ PRN; +HYDROmorphone 0.5 MG/0.5 ML SYRINGE IVP PRN; -LIDOCAINE 1% (10MG/ML) FOR IV START INTRADERMA PRN; +ONDANSETRON 4 MG/2 ML VIAL IVP ONE; +Pre Op ABX Message 1 EACH MISC MISCELLANE ONE; +SCOPOLAMINE 1 MG/72 HR PATCH TRANSDERM STA
--- NOTE | 2022-09-26 08:53 | P.GSHP ---
History of Present Illness H&P Date: 09/26/22 CHIEF COMPLAINT: History of intra-abdominal adhesions HISTORY OF PRESENT ILLNESS: The patient is a 47-year-old female who presents with history of intra-abdominal adhesions from multiple prior surgeries including increasing abdominal pain. She now presents for diagnostic laparoscopy including lysis of adhesions. PAST MEDICAL HISTORY: Please see list. PAST SURGICAL HISTORY: Please see list. MEDICATIONS: Please see list. ALLERGIES: Please see list. SOCIAL HISTORY: No illicit drug use FAMILY HISTORY: No reports of Crohn disease or ulcerative colitis. REVIEW OF ORGAN SYSTEMS: CONSTITUTIONAL: No reports of fevers or chills. GI: Denies any blood in stools or constipation. PHYSICAL EXAM: VITAL SIGNS: Stable GENERAL: Well-developed pleasant and in no acute distress. HEENT: No scleral icterus. Extraocular movements grossly intact. Moist buccal mucosa. NECK: Supple without lymphadenopathy. CHEST: Unlabored respirations. Equal bilateral excursions. CARDIOVASCULAR: Regular rate and rhythm. Distal 2+ pulses. ABDOMEN: Soft, diffuse abdominal tenderness. No peritonitis. MUSCULOSKELETAL: No clubbing, cyanosis, or edema. ASSESSMENT: 1. Diffuse abdominal pain. 2. History of multiple abdominal surgeries. 3. Intra-abdominal adhesions. PLAN: 1. Robotic lysis of adhesions were described in detail including risk of injury to the intestine, need for further surgery, and open technique. 2. DVT prophylaxis. 3. Antibiotic prophylaxis. Past Medical History Past Medical History: Asthma, Fibromyalgia, GERD/Reflux, Hyperlipidemia, Hypertension, Osteoarthritis (OA), Seizure Disorder, Thyroid Disorder Additional Past Medical History / Comment(s): LAST SEIZURE 04/2021, DDD, MIGRAINES, KIDNEY STONES, STATES FOOD IS GETTING STUCK, abdominal discomfort, environmental allergies, "bleeding ulcer", hiatal hernia History of Any Multi-Drug Resistant Organisms: MRSA Date of last positivie culture/infection: 2011 MDRO Source:: left breast Past Surgical History: Appendectomy, Bariatric Surgery, Breast Surgery, Cholecystectomy, Hernia Repair, Hysterectomy Additional Past Surgical History / Comment(s): Gastric bypass in [place] 2012 ,panniculectomy, breast reduction 2014, CYSTOSCOPY WITH KIDNEY STONE REMOVAL 09/04/2020 , EGD Past Anesthesia/Blood Transfusion Reactions: Previous Problems w/ Anesthesia, Motion Sickness Additional Past Anesthesia/Blood Transfusion Reaction / Comment(s): MIGRAINE AFTER ANESTHESIA Smoking Status: Current every day smoker - Past Family History Mother Family Medical History: Cancer Sister(s) Family Medical History: Deep Vein Thrombosis (DVT) Medications and Allergies Home Medications Medication Instructions Recorded Confirmed Type Linaclotide [Linzess] 145 mcg PO DAILY 02/11/20 09/26/22 History Naloxone HCl [Narcan] 4 mg NASAL DIRECTED PRN 02/11/20 09/15/22 History ALPRAZolam [Xanax] 1 mg PO TID 06/04/20 09/26/22 History Ezetimibe [Zetia] 10 mg PO HS 06/04/20 09/26/22 History HYDROcodone/APAP 10-325MG [[place] 1 tab PO QID 06/04/20 09/26/22 History 10-325] Hyoscyamine Sulfate [Levsin] 0.125 mg PO DIRECTED PRN 06/04/20 09/26/22 History Levothyroxine Sodium [Synthroid] 75 mg PO DAILY 06/04/20 09/26/22 History Pantoprazole Sodium [Protonix] 40 mg PO BID 06/04/20 09/26/22 History levETIRAcetam [Keppra] 1,000 mg PO BID 06/04/20 09/26/22 History rOPINIRole HCL [Requip Xl] 3 mg PO HS 06/04/20 09/26/22 History Promethazine [Phenergan] 25 mg PO ONCE PRN 09/15/20 09/26/22 History Montelukast [Singulair] 10 mg PO HS 08/13/21 09/26/22 History Qulipta 60 mg PO DAILY 08/13/21 09/26/22 History Sucralfate [Carafate] 1 gm PO BID #30 tablet 08/16/21 09/19/22 Rx Lasmiditan Succinate [Reyvow] 100 mg PO DIRECTED PRN 01/19/22 09/26/22 History Ubrogepant [Ubrelvy] 100 mg PO DIRECTED PRN 01/19/22 09/15/22 History Cyanocobalamin [Vitamin B-12 1,000 mcg SQ DIRECTED 08/31/22 09/26/22 History Injection] traZODone HCL 100 mg PO HS 08/31/22 09/26/22 History Allergy Shots WEEKLY 09/15/22 History Multivitamins, Thera [Multivitamin 1 tab PO DAILY 09/15/22 09/15/22 History (formulary)] Propranolol [Inderal] 10 mg PO BID 09/15/22 09/26/22 History Allergies Allergy/AdvReac Type Severity Reaction Status Date / Time ketorolac [From Toradol] Allergy Nausea & Verified 09/26/22 08:45 Vomiting tramadol [From Ultram] Allergy Rash/Hives/chest Verified 09/26/22 08:45 pain NSAIDS (Non-Steroidal AdvReac Nausea & Verified 09/26/22 08:45 Anti-Inflamma Vomiting
[2022-09-26 09:01] VITALS: TEMP 97.6
[2022-09-26] MEDS ORDERED: MIDAZOLAM 2 MG/2 ML VIAL IV ONE (09:09)
[2022-09-26] MEDS ORDERED: SCOPOLAMINE 1 MG/72 HR PATCH TRANSDERM ONE (10:05)
[2022-09-26] MEDS ORDERED: fentaNYL (PF) 50 MCG/1 ML VIAL IVP ONE ×2 (10:10→10:17)
[2022-09-26] MEDS ORDERED: MIDAZOLAM 2 MG/2 ML VIAL IVP ONE (10:17)
--- NOTE | 2022-09-26 10:40 | P.ANPRN ---
Procedure Note - Anesthesia - Nerve Block Performed Bilateral Transversus Abdominis Time Out Performed: Yes (10:16) Date of Procedure: 09/26/22 Procedure Start Time: : Procedure Stop Time: 24 Location of Patient: PreOp Indication: Acute Post-Operative Pain, Requested by Surgeon (Dr Shabazz) Sedation Type: Sedate with meaningful contact maintained Preparation: Sterile Prep Position: Supine Catheter: None Needle Types: Pajunk Needle Gauge: 21 Ultrasound used to visualize needle placement: Yes Ultrasound used to observe medication spread: Yes Injectate: 0.5% Ropivacaine (see comment for volume) (15cc +10cc PF Normal saline each side) Blood Aspirated: No Resistance on Injection: Normal Image Stored and Saved: Yes Events: Uneventful and Well Tolerated
[2022-09-26] MEDS ORDERED: BUPIVACAIN-EPI 0.25%-1:200,000 30 ML VIAL SQ ONE ×2 (10:46→11:26)
[2022-09-26] MEDS ORDERED: ROCURONIUM 10 MG/ML (5 ML VIAL) IV ONE (10:50)
[2022-09-26] MEDS ORDERED: SUCCINYLCHOLINE CHLORIDE 200 MG/10 ML VIAL IV ONE (10:50)
[2022-09-26] MEDS ORDERED: fentaNYL (PF) 50 MCG/ML 2 ML AMP ONE (10:50)
[2022-09-26] MEDS ORDERED: GLYCOPYRROLATE 0.2 MG/ML 2 ML VIAL ONE (10:50)
[2022-09-26] MEDS ORDERED: NEOSTIGMINE 1 MG/ML 10 ML VIAL ONE (10:50)
[2022-09-26] MEDS ORDERED: MIDAZOLAM 2 MG/2 ML VIAL ONE (10:50)
[2022-09-26] MEDS ORDERED: ROPIVACAINE 5 MG/ML 30 ML VIAL ONE (10:50)
[2022-09-26] MEDS ORDERED: PROPOFOL 10 MG/ML 20 ML VIAL IV ONE (10:50)
[2022-09-26] MEDS ORDERED: LIDOCAINE 2% INJ 20 MG/ML (2 ML VIAL) ONE (10:50)
[2022-09-26] MEDS ORDERED: LACTATED RINGERS 1,000 ML IV ONE (12:02)
[2022-09-26 12:20] VITALS: RESP 16
[2022-09-26] MEDS ORDERED: HYDROmorphone 0.5 MG/0.5 ML SYRINGE IVP ONE (12:28)
--- NOTE | 2022-09-26 12:49 | P.PCN ---
Date of Procedure: 09/26/22 Description of Procedure: SURGEON: LIYAH SHABAZZ MD PREOPERATIVE DIAGNOSES: 1. Peritoneal adhesions with severe epigastric and left upper quadrant abdominal pain 2. History of gastric bypass with multiple abdominal procedures 3. Chronic tobacco abuse disorder 4. Fibromyalgia 5. Gastroesophageal reflux disease with diaphragmatic hiatal hernia 6. Seizure disorder 7. Hypothyroidism 8. Hyperlipidemia 9. Hypertensive heart disease POSTOPERATIVE DIAGNOSES: 1. Peritoneal adhesions, epigastrium and left upper quadrant 2. History of gastric bypass with multiple abdominal procedures 3. Chronic tobacco abuse disorder 4. Fibromyalgia 5. Gastroesophageal reflux disease with diaphragmatic hiatal hernia 6. Seizure disorder 7. Hypothyroidism 8. Hyperlipidemia 9. Hypertensive heart disease 10. Small bowel volvulus OPERATION: 1. Robotic-assisted da Rian Xi laparoscopic lysis of adhesions with reduction of small bowel volvulus, left upper quadrant ESTIMATED BLOOD LOSS: 5 mL. SPECIMENS REMOVED: None. COMPLICATIONS: None. OPERATIVE FINDINGS: 1. No ventral hernias identified. 2. Adhesions along the epigastrium, left upper quadrant 3. Complete scarring of Lazaro defect and jejunojejunostomy mesenteric defect 4. Normal terminal ileum and cecum unremarkable. 5. Mild small bowel volvulus left upper quadrant reduced INDICATIONS: The patient is a 47-year-old female who presents with epigastric abdominal pain including left upper quadrant abdominal pain. Surgical intervention with diagnostic laparoscopy, lysis of adhesions were described. Informed consent was obtained. Robotic assisted laparoscopic approach was described. Benefits and risks of the procedure including but not limited to bleeding, infection, injury to the small bowel was described. Informed consent was obtained. DESCRIPTION OF PROCEDURE: Patient was brought to the operating room, placed in supine position. After general induction, the abdomen had been prepped and draped in standard sterile fashion. The robotic da Rian XI system was primed. After a timeout protocol was performed, the patient had been prepped and draped in standard sterile fashion. The robot was docked along the right lateral abdomen. The patient was repositioned in with right side up. Please note prior to docking of the robot; however, a 5 mm 0 degrees laparoscopic trocar entry was performed along the left upper quadrant. The abdomen was insufflated to 15 mmHg pressure which she tolerated well. Diagnostic laparoscopy was performed. Next, three 8 mm robotic ports were placed along the right lateral abdominal wall. The camera 8-mm port was maintained along mid-lateral abdomen. Please note that the ports were placed at least 10 to 15 cm away from the target anatomy. Instruments including graspers and vessel sealer were interchanged by the appeals assistant. I had sat at the console. No evidence of incisional hernia was identified. The small bowel from the mirza limb to distal ileum was inspected. The appendix was absent from appendectomy. The small bowel was investigated from the terminal ileum to the ligament of Treitz with finding of redundant mesentery with active small bowel volvulus involving the jejunum to the jejunojejunostomy at the left upper quadrant. The mesentery small bowel volvulus were reduced. Adhesions along the epigastrium involving the distal transverse colon to the diaphragm was lysed using vessel sealer. Abnormal adhesions, interloop involving the jejunojejunostomy at the left upper quadrant were similarly lysed using vessel sealer. No herniation of bowel was found along the Lazaro defect or jejunojejunostomy mesenteric defect as all were scarred. Adhesion of gastrojejunal anastomosis to the anterior abdominal wall was released. The terminal ileum and cecum was unremarkable. Lysis of adhesions over 30 minutes were performed. The small bowel was viable.The robot was undocked. All pneumoperitoneum instruments were evacuated from the abdominal cavity. The incisions were reapproximated using 4-0 Monocryl in an interrupted subcuticular fashion. Please note along the trocar sites, local anesthetic was placed as a field block prior to insertion of all instruments. Exofin was applied to the skin. At the end of the procedure needle, sponge, and instrument count had been verified correct by the surgical appliances salesperson. The patient was transferred to postanesthesia care unit in stable condition. Plan - Discharge Summary New Discharge Prescriptions: New Simethicone [Gas-X] 125 mg PO AC-TID PRN #20 capsule PRN Reason: Pain Acetaminophen [Tylenol] 650 mg PO Q4H #30 tab Continue Naloxone HCl [Narcan] 4 mg NASAL DIRECTED PRN PRN Reason: OVERDOSE Linaclotide [Linzess] 145 mcg PO DAILY HYDROcodone/APAP 10-325MG [[place] 10-325] 1 tab PO QID ALPRAZolam [Xanax] 1 mg PO TID levETIRAcetam [Keppra] 1,000 mg PO BID Pantoprazole Sodium [Protonix] 40 mg PO BID Levothyroxine Sodium [Synthroid] 75 mg PO DAILY Ezetimibe [Zetia] 10 mg PO HS rOPINIRole HCL [Requip Xl] 3 mg PO HS Hyoscyamine Sulfate [Levsin] 0.125 mg PO DIRECTED PRN PRN Reason: gastritis Promethazine [Phenergan] 25 mg PO ONCE PRN PRN Reason: UPSET STOMACH Montelukast [Singulair] 10 mg PO HS Ubrogepant [Ubrelvy] 100 mg PO DIRECTED PRN PRN Reason: Migraine Headache traZODone HCL 100 mg PO HS Multivitamins, Thera [Multivitamin (formulary)] 1 tab PO DAILY Allergy Shots WEEKLY Propranolol [Inderal] 10 mg PO BID Qulipta 60 mg PO DAILY Sucralfate [Carafate] 1 gm PO BID #30 tablet Lasmiditan Succinate [Reyvow] 100 mg PO DIRECTED PRN PRN Reason: Migraine Headache Cyanocobalamin [Vitamin B-12 Injection] 1,000 mcg SQ DIRECTED Discharge Medication List Linaclotide [Linzess] 145 mcg PO DAILY 02/11/20 [History] Naloxone HCl [Narcan] 4 mg NASAL DIRECTED PRN 02/11/20 [History] ALPRAZolam [Xanax] 1 mg PO TID 06/04/20 [History] Ezetimibe [Zetia] 10 mg PO HS 06/04/20 [History] HYDROcodone/APAP 10-325MG [[place] 10-325] 1 tab PO QID 06/04/20 [History] Hyoscyamine Sulfate [Levsin] 0.125 mg PO DIRECTED PRN 06/04/20 [History] Levothyroxine Sodium [Synthroid] 75 mg PO DAILY 06/04/20 [History] Pantoprazole Sodium [Protonix] 40 mg PO BID 06/04/20 [History] levETIRAcetam [Keppra] 1,000 mg PO BID 06/04/20 [History] rOPINIRole HCL [Requip Xl] 3 mg PO HS 06/04/20 [History] Promethazine [Phenergan] 25 mg PO ONCE PRN 09/15/20 [History] Montelukast [Singulair] 10 mg PO HS 08/13/21 [History] Qulipta 60 mg PO DAILY 08/13/21 [History] Sucralfate [Carafate] 1 gm PO BID #30 tablet 08/16/21 [Rx] Lasmiditan Succinate [Reyvow] 100 mg PO DIRECTED PRN 01/19/22 [History] Ubrogepant [Ubrelvy] 100 mg PO DIRECTED PRN 01/19/22 [History] Cyanocobalamin [Vitamin B-12 Injection] 1,000 mcg SQ DIRECTED 08/31/22 [History] traZODone HCL 100 mg PO HS 08/31/22 [History] Allergy Shots WEEKLY 09/15/22 [History] Multivitamins, Thera [Multivitamin (formulary)] 1 tab PO DAILY 09/15/22 [History] Propranolol [Inderal] 10 mg PO BID 09/15/22 [History] Acetaminophen [Tylenol] 650 mg PO Q4H #30 tab 09/26/22 [Rx] Simethicone [Gas-X] 125 mg PO AC-TID PRN #20 capsule 09/26/22 [Rx] Follow up Appointment(s)/Referral(s): Liyah Shabazz MD [STAFF PHYSICIAN] - 09/30/22 Patient Instructions/Handouts: *[facility] - Scopalamine Patch Instructions, Lysis of Abdominal Adhesions (DC), *[facility] - Managing Your Pain After Surgery Without Opioids, How to Stop Smoking (ED) Activity/Diet/Wound Care/Special Instructions: Diet as tolerated No lifting over 10 pounds in 2 weeks until October 10. May shower. No bath tub soaks for two weeks until October 10. Diet as tolerated. Use Tylenol, simethicone scheduled for the next 24-48 hours for best pain relief. Use ice along incisions for today to prevent swelling. Discharge Disposition: HOME SELF-CARE
[2022-09-26] MEDS ORDERED: ONDANSETRON 4 MG/2 ML VIAL IVP ONE (12:53)
[2022-09-26 13:37] VITALS: BP 126/72; PULSE 71
== END 2022-09-26 13:48 | disposition home or self-care (01) ==
LOC: OR 07:43
PROVIDERS: ATTEND Surgery Plastic and Reconstructive Surgery
DX: K66.0 Peritoneal adhesions (postprocedural) (postinfection) (principal); J45.909 Unspecified asthma, uncomplicated; M79.7 Fibromyalgia; K21.9 Gastro-esophageal reflux disease without esophagitis; E78.5 Hyperlipidemia, unspecified; M19.90 Unspecified osteoarthritis, unspecified site; G40.909 Epilepsy, unspecified, not intractable, without status epilepticus; E07.9 Disorder of thyroid, unspecified; F17.210 Nicotine dependence, cigarettes, uncomplicated; Z88.6 Allergy status to analgesic agent; Z88.5 Allergy status to narcotic agent; Z79.891 Long term (current) use of opiate analgesic; Z79.890 Hormone replacement therapy; Z79.899 Other long term (current) drug therapy; I50.9 Heart failure, unspecified; I11.0 Hypertensive heart disease with heart failure; E03.9 Hypothyroidism, unspecified; K44.9 Diaphragmatic hernia without obstruction or gangrene; G89.18 Other acute postprocedural pain
CPT/HCPCS: 44180; 64488; J2250; J0330; J1100; J2710; J0690; J2405; J3010 ×2; J2795; J2704; J1170; J1644; J2001